=== PATIENT | male | born 1930 | race Caucasian/White ===

== ENCOUNTER 2018-01-06 08:36 | Inpatient (IN) | payer MEDICARE ==
[~2018-01-06] VITALS: Ht 185.4 cm; Wt 82.5 kg
[2018-01-06 09:14] LABS: BASOPHILS % (AUTO) 0.3 % (0.0-5.0); EOSINOPHILS % (AUTO) 2.5 % (0.0-8.0); HEMATOCRIT 42.1 % (42-54); LYMPHOCYTES % (AUTO) 4.9 % (21.0-51.0); MEAN CORPUSCULAR HEMOGLOBIN 31.5 pg (27.0-33.0); MEAN CORPUSCULAR HGB CONC 33.5 g/dL (32.0-36.0); MEAN CORPUSCULAR VOLUME 93.9 fL (79-99); MONOCYTES % (AUTO) 4.9 % (3.0-13.0); NEUTROPHILS % (AUTO) 87.4 % (40.0-77.0); PLATELET COUNT (AUTO) 142 K/uL (130-400); RED BLOOD CELL COUNT(AUTO) 4.49 MIL/uL (4.50-6.20); RED CELL DISTRIBUTION WIDTH 14.5 % (11.0-15.5); WHITE BLOOD COUNT (AUTO) 6.8 K/uL (4.8-10.8)
[2018-01-06 09:29] LABS: CREATININE 1.9 mg/dL (0.5-1.5); POTASSIUM 4.3 mmol/L (3.5-5.1)
[2018-01-06 09:35] LABS: ALBUMIN 3.5 g/dL (3.5-5.0); BILIRUBIN,TOTAL 0.5 mg/dL (0.2-1.0); TOTAL PROTEIN, SERUM 6.6 g/dL (6.0-8.3)
[2018-01-06] MEDS ORDERED: SODIUM CHLORIDE 0.9% 1000ML 1,000 ML IV ONE ×2 (10:09→12:36)
[2018-01-06] MEDS ORDERED: CEFTRIAXONE SODIUM 1 GM ONE (10:09)
[2018-01-06] MEDS ORDERED: SODIUM CHLORIDE 0.9% 100 ML IV ONE (10:10)
[2018-01-06] MEDS ORDERED: AZITHROMYCIN 250 MG TABLET PO ONE (10:10)
[2018-01-06 10:20] LABS: APPEARANCE,URINE Clear (CLEAR); BILIRUBIN,URINE Negative (NEGATIVE); COLOR,URINE Yellow (YELLOW); GLUCOSE, URINE (UA) Negative (NEGATIVE); KETONES,URINE Negative (NEGATIVE); LEUKOCYTE ESTERASE ,URINE Negative (NEGATIVE); NITRATE,URINE Negative (NEGATIVE); OCCULT BLOOD,URINE Negative (NEGATIVE); PROTEIN,URINE Trace (NEGATIVE); UROBILINOGEN,URINE 0.2 mg/dL (0.2-1.0)
[2018-01-06 10:31] LABS: BACTERIA,URINE None Seen /HPF (None Seen); MUCUS,URINE Rare LPF (None Seen); RBC,URINE None Seen /HPF (0-1); SQUAMOUS EPITHELIAL CELL,UR Rare /HPF (0-2); WBC,URINE 0-1 /HPF (0-1)
[2018-01-06 16:20] VITALS: BP 148/76
[2018-01-06] MEDS ORDERED: ACETAMINOPHEN 325 MG TAB PO PRN (17:00)
[2018-01-06] MEDS: SODIUM CHLORIDE 0.9% 1000ML 1,000 ML IV SCH (17:00)
[2018-01-06 19:10] VITALS: BP 151/86
[2018-01-06] MEDS ORDERED: GABA-529 PO (20:16)
[2018-01-06] MEDS ORDERED: BISA10SU61 RC (20:16)
[2018-01-06] MEDS ORDERED: MULT-1192 PO (20:16)
[2018-01-06] MEDS ORDERED: TAMS0.4C32 PO (20:16)
[2018-01-06] MEDS ORDERED: ENAL5TAB PO (20:16)
[2018-01-06] MEDS ORDERED: CALC1TAB3 PO (20:16)
[2018-01-06] MEDS ORDERED: ACET325C PO (20:16)
[2018-01-06] MEDS ORDERED: FLUT1DIS4 IH (20:16)
[2018-01-06] MEDS ORDERED: ALBUHFA IH (20:16)
[2018-01-06] MEDS ORDERED: MIRT15TA7 PO (20:16)
[2018-01-06] MEDS ORDERED: MOM30 PO (20:16)
[2018-01-06] MEDS ORDERED: PANT20TA12 PO (20:16)
[2018-01-06] MEDS ORDERED: MEMA1TAB2 PO (20:16)
[2018-01-06] MEDS ORDERED: NA P133E22 RC (20:16)
[2018-01-07] MEDS ORDERED: ONDANSETRON HCL MDV 20ML 2 MG/ML VIAL IVP PRN
[2018-01-07 00:04] VITALS: BP 138/78
[2018-01-07] MEDS: IPRATROPIUM/ALBUTEROL SULFATE 3 ML SOLUTION IH SCH ×5 (01:14→23:02)
[2018-01-07 04:30] VITALS: BP 122/76
[2018-01-07] MEDS: SODIUM CHLORIDE 0.9% 1000ML 1,000 ML IV SCH ×2 (05:58→20:33)
[2018-01-07 06:25] LABS: CREATININE 1.6 mg/dL (0.5-1.5); POTASSIUM 4.1 mmol/L (3.5-5.1)
[2018-01-07 07:00] VITALS: BP 122/66
[2018-01-07] MEDS: CEFTRIAXONE SODIUM 1 GM IVP SCH (09:02)
[2018-01-07] MEDS: AZITHROMYCIN 500MG+NS 250ML 250 ML IV SCH (09:07)
[2018-01-07] MEDS: ENOXAPARIN SODIUM 30 MG/0.3 ML SQ SCH (09:18)
[2018-01-07 11:00] VITALS: BP 104/61
[2018-01-07 15:00] VITALS: BP 133/72
[2018-01-07 20:47] VITALS: BP 132/65
[2018-01-08 00:33] VITALS: BP 135/64
[2018-01-08 04:30] VITALS: BP 178/95
[2018-01-08 05:36] LABS: BASOPHILS % (AUTO) 0.5 % (0.0-5.0); EOSINOPHILS % (AUTO) 7.4 % (0.0-8.0); HEMATOCRIT 34.7 % (42-54); MEAN CORPUSCULAR HEMOGLOBIN 32.2 pg (27.0-33.0); MEAN CORPUSCULAR VOLUME 94.8 fL (79-99); MONOCYTES % (AUTO) 5.5 % (3.0-13.0); NEUTROPHILS % (AUTO) 75.6 % (40.0-77.0); PLATELET COUNT (AUTO) 129 K/uL (130-400); RED BLOOD CELL COUNT(AUTO) 3.66 MIL/uL (4.50-6.20); RED CELL DISTRIBUTION WIDTH 14.5 % (11.0-15.5); WHITE BLOOD COUNT (AUTO) 5.5 K/uL (4.8-10.8)
[2018-01-08 05:45] LABS: CREATININE 1.5 mg/dL (0.5-1.5)
[2018-01-08] MEDS: IPRATROPIUM/ALBUTEROL SULFATE 3 ML SOLUTION IH SCH ×4 (06:09→23:59)
[2018-01-08 08:00] VITALS: BP 148/93
[2018-01-08] MEDS: SODIUM CHLORIDE 0.9% 1000ML 1,000 ML IV SCH (09:45)
[2018-01-08] MEDS: CEFTRIAXONE SODIUM 1 GM IVP SCH (09:46)
[2018-01-08] MEDS: ENOXAPARIN SODIUM 30 MG/0.3 ML SQ SCH (09:48)
[2018-01-08] MEDS: AZITHROMYCIN 500MG+NS 250ML 250 ML IV SCH (10:00)
[2018-01-08 12:00] VITALS: BP 169/96
[2018-01-08 16:00] VITALS: BP 161/116
[2018-01-08 20:35] VITALS: BP 170/82
[2018-01-08] MEDS ORDERED: LORAZEPAM 2 MG/ML 1 ML VIAL IVP PRN (22:00)
[2018-01-08] MEDS ORDERED: ALPRAZOLAM 0.25 MG TABLET PO PRN (22:00)
[2018-01-08] MEDS: HYDRALAZINE HCL 20 MG/ML VIAL IV PRN (22:56)
[2018-01-09 00:15] VITALS: BP 155/85
[2018-01-09] MEDS: HYDRALAZINE HCL 20 MG/ML VIAL IV PRN (05:46)
[2018-01-09 05:47] LABS: BASOPHILS % (AUTO) 0.4 % (0.0-5.0); EOSINOPHILS % (AUTO) 5.4 % (0.0-8.0); HEMATOCRIT 39.1 % (42-54); LYMPHOCYTES % (AUTO) 10.9 % (21.0-51.0); MEAN CORPUSCULAR HEMOGLOBIN 32.2 pg (27.0-33.0); MEAN CORPUSCULAR HGB CONC 34.1 g/dL (32.0-36.0); MEAN CORPUSCULAR VOLUME 94.5 fL (79-99); NEUTROPHILS % (AUTO) 75.3 % (40.0-77.0); PLATELET COUNT (AUTO) 144 K/uL (130-400); RED BLOOD CELL COUNT(AUTO) 4.14 MIL/uL (4.50-6.20); RED CELL DISTRIBUTION WIDTH 14.6 % (11.0-15.5); WHITE BLOOD COUNT (AUTO) 5.1 K/uL (4.8-10.8)
[2018-01-09 05:57] LABS: CREATININE 1.4 mg/dL (0.5-1.5); POTASSIUM 4.3 mmol/L (3.5-5.1)
[2018-01-09] MEDS: IPRATROPIUM/ALBUTEROL SULFATE 3 ML SOLUTION IH SCH ×3 (06:25→17:39)
[2018-01-09] MEDS ORDERED: NA PHOS DI BA RC PRN (08:45)
[2018-01-09] MEDS ORDERED: BISACODYL 10 MG SUPP.RECT RC SCH (08:45)
[2018-01-09] MEDS ORDERED: NA PHOS M B RC PRN (08:45)
[2018-01-09] MEDS ORDERED: MEMANTINE HCL PO SCH (09:00)
[2018-01-09] MEDS: CEFTRIAXONE SODIUM 1 GM IVP SCH (09:07)
[2018-01-09] MEDS: AZITHROMYCIN 500MG+NS 250ML 250 ML IV SCH (09:07)
[2018-01-09 09:12] VITALS: BP 145/71
[2018-01-09 11:59] VITALS: BP 137/87
[2018-01-09] MEDS: TAMSULOSIN HCL 0.4 MG CAP.ER.24H PO SCH (13:17)
[2018-01-09] MEDS: GABAPENTIN 100 MG CAPSULE PO SCH ×2 (13:17→20:19)
[2018-01-09] MEDS: ENALAPRIL MALEATE 5 MG TAB PO SCH (13:18)
[2018-01-09] MEDS: ENOXAPARIN SODIUM 30 MG/0.3 ML SQ SCH (13:20)
[2018-01-09 17:33] VITALS: BP 116/75
[2018-01-09] MEDS: BUDESONIDE 0.5 MG/2 ML INH IH SCH (17:39)
[2018-01-09] MEDS: MIRTAZAPINE 15 MG TABLET PO SCH (20:18)
[2018-01-10] VITALS: BP 114/55
[2018-01-10] MEDS: IPRATROPIUM/ALBUTEROL SULFATE 3 ML SOLUTION IH SCH ×4 (00:13→18:48)
[2018-01-10] MEDS: BUDESONIDE 0.5 MG/2 ML INH IH SCH ×2 (07:14→18:48)
[2018-01-10 08:00] VITALS: BP 148/86
[2018-01-10] MEDS: TAMSULOSIN HCL 0.4 MG CAP.ER.24H PO SCH (08:47)
[2018-01-10] MEDS: AZITHROMYCIN 500MG+NS 250ML 250 ML IV SCH (08:47)
[2018-01-10] MEDS: PANTOPRAZOLE SODIUM 40 MG TABLET.DR PO SCH (08:47)
[2018-01-10] MEDS: CALCIUM 600 + VITAMIN D 400 TABLET PO SCH (08:47)
[2018-01-10] MEDS: ENALAPRIL MALEATE 5 MG TAB PO SCH (08:47)
[2018-01-10] MEDS: MULTIVITAMIN TABLET PO SCH (08:48)
[2018-01-10] MEDS: CEFTRIAXONE SODIUM 1 GM IVP SCH (08:48)
[2018-01-10] MEDS: GABAPENTIN 100 MG CAPSULE PO SCH ×3 (08:48→20:46)
[2018-01-10] MEDS: ENOXAPARIN SODIUM 30 MG/0.3 ML SQ SCH (08:49)
[2018-01-10] MEDS: FLUTICASONE/SALMETEROL 100MCG-50MCG/DISKUS IH SCH ×2 (09:00→20:43)
[2018-01-10 11:00] VITALS: BP 122/72
[2018-01-10 16:00] VITALS: BP 120/70
[2018-01-10 19:00] VITALS: BP 148/87
[2018-01-10] MEDS: MIRTAZAPINE 15 MG TABLET PO SCH (20:45)
[2018-01-11] VITALS: BP 131/74
[2018-01-11] MEDS: IPRATROPIUM/ALBUTEROL SULFATE 3 ML SOLUTION IH SCH ×4 (00:14→18:04)
[2018-01-11 04:00] VITALS: BP 138/75
[2018-01-11 05:26] LABS: BASOPHILS % (AUTO) 0.8 % (0.0-5.0); EOSINOPHILS % (AUTO) 12.9 % (0.0-8.0); HEMATOCRIT 34.6 % (42-54); MEAN CORPUSCULAR HEMOGLOBIN 32.7 pg (27.0-33.0); MEAN CORPUSCULAR HGB CONC 34.4 g/dL (32.0-36.0); MEAN CORPUSCULAR VOLUME 95.1 fL (79-99); MONOCYTES % (AUTO) 8.4 % (3.0-13.0); NEUTROPHILS % (AUTO) 54.9 % (40.0-77.0); NUCLEATED RED BLOOD CELLS 0.1 % (0.0-0.19); PLATELET COUNT (AUTO) 145 K/uL (130-400); RED BLOOD CELL COUNT(AUTO) 3.64 MIL/uL (4.50-6.20); RED CELL DISTRIBUTION WIDTH 14.8 % (11.0-15.5); WHITE BLOOD COUNT (AUTO) 4.1 K/uL (4.8-10.8)
[2018-01-11 05:30] LABS: CREATININE 1.4 mg/dL (0.5-1.5); POTASSIUM 4.2 mmol/L (3.5-5.1)
[2018-01-11] MEDS: BUDESONIDE 0.5 MG/2 ML INH IH SCH ×2 (06:18→18:04)
[2018-01-11 08:00] VITALS: BP 141/99
[2018-01-11] MEDS: ENOXAPARIN SODIUM 30 MG/0.3 ML SQ SCH (08:57)
[2018-01-11] MEDS: CALCIUM 600 + VITAMIN D 400 TABLET PO SCH (08:57)
[2018-01-11] MEDS: GABAPENTIN 100 MG CAPSULE PO SCH ×3 (08:57→20:52)
[2018-01-11] MEDS: ENALAPRIL MALEATE 5 MG TAB PO SCH (08:58)
[2018-01-11] MEDS: AZITHROMYCIN 500MG+NS 250ML 250 ML IV SCH (08:58)
[2018-01-11] MEDS: TAMSULOSIN HCL 0.4 MG CAP.ER.24H PO SCH (08:58)
[2018-01-11] MEDS: MULTIVITAMIN TABLET PO SCH (08:58)
[2018-01-11] MEDS: PANTOPRAZOLE SODIUM 40 MG TABLET.DR PO SCH (08:58)
[2018-01-11] MEDS: CEFTRIAXONE SODIUM 1 GM IVP SCH (08:58)
[2018-01-11] MEDS: FLUTICASONE/SALMETEROL 100MCG-50MCG/DISKUS IH SCH ×2 (09:00→21:00)
[2018-01-11 11:00] VITALS: BP 118/69
[2018-01-11 16:00] VITALS: BP 156/91
[2018-01-11 19:00] VITALS: BP 157/86
[2018-01-11] MEDS: MIRTAZAPINE 15 MG TABLET PO SCH (20:52)
[2018-01-12] VITALS (7 sets, daily range): BP systolic 118–147; BP diastolic 48–78
[2018-01-12] MEDS: IPRATROPIUM/ALBUTEROL SULFATE 3 ML SOLUTION IH SCH ×4 (01:09→18:27)
[2018-01-12] MEDS: BUDESONIDE 0.5 MG/2 ML INH IH SCH ×2 (06:11→18:43)
[2018-01-12] MEDS: AZITHROMYCIN 500MG+NS 250ML 250 ML IV SCH (09:12)
[2018-01-12] MEDS: CEFTRIAXONE SODIUM 1 GM IVP SCH (09:12)
[2018-01-12] MEDS: ENALAPRIL MALEATE 5 MG TAB PO SCH (09:13)
[2018-01-12] MEDS: TAMSULOSIN HCL 0.4 MG CAP.ER.24H PO SCH (09:13)
[2018-01-12] MEDS: PANTOPRAZOLE SODIUM 40 MG TABLET.DR PO SCH (09:13)
[2018-01-12] MEDS: MULTIVITAMIN TABLET PO SCH (09:13)
[2018-01-12] MEDS: CALCIUM 600 + VITAMIN D 400 TABLET PO SCH (09:13)
[2018-01-12] MEDS: GABAPENTIN 100 MG CAPSULE PO SCH ×3 (09:13→20:58)
[2018-01-12] MEDS: ENOXAPARIN SODIUM 30 MG/0.3 ML SQ SCH (09:16)
[2018-01-12] MEDS: MAGNESIUM HYDROXIDE 30 ML/UDCUP PO PRN (09:29)
[2018-01-12] MEDS: MIRTAZAPINE 15 MG TABLET PO SCH (20:58)
[2018-01-12] MEDS: FLUTICASONE/SALMETEROL 100MCG-50MCG/DISKUS IH SCH (21:00)
[2018-01-13] MEDS: IPRATROPIUM/ALBUTEROL SULFATE 3 ML SOLUTION IH SCH ×2 (00:42→06:18)
[2018-01-13] MEDS: MAGNESIUM HYDROXIDE 30 ML/UDCUP PO PRN (01:53)
[2018-01-13 04:32] VITALS: BP 119/61
[2018-01-13] MEDS: BUDESONIDE 0.5 MG/2 ML INH IH SCH (06:35)
[2018-01-13 08:00] VITALS: BP 150/78
[2018-01-13] MEDS: CEFTRIAXONE SODIUM 1 GM IVP SCH (08:36)
[2018-01-13] MEDS: AZITHROMYCIN 500MG+NS 250ML 250 ML IV SCH (08:36)
[2018-01-13] MEDS: CALCIUM 600 + VITAMIN D 400 TABLET PO SCH (08:38)
[2018-01-13] MEDS: ENALAPRIL MALEATE 5 MG TAB PO SCH (08:38)
[2018-01-13] MEDS: PANTOPRAZOLE SODIUM 40 MG TABLET.DR PO SCH (08:38)
[2018-01-13] MEDS: MULTIVITAMIN TABLET PO SCH (08:38)
[2018-01-13] MEDS: GABAPENTIN 100 MG CAPSULE PO SCH ×2 (08:38→14:58)
[2018-01-13] MEDS: TAMSULOSIN HCL 0.4 MG CAP.ER.24H PO SCH (08:38)
[2018-01-13] MEDS: FLUTICASONE/SALMETEROL 100MCG-50MCG/DISKUS IH SCH (08:41)
[2018-01-13] MEDS: ENOXAPARIN SODIUM 30 MG/0.3 ML SQ SCH (08:41)
[2018-01-13 12:00] VITALS: BP 132/74
== END 2018-01-13 15:10 | disposition home or self-care (01) | DRG 193 ==
LOC: EDH 08:36 → EDHIP 12:05 → 3AH 16:19
PROVIDERS: ADMIT Family Medicine; ATTEND Family Medicine
DX: J18.9 Pneumonia, unspecified organism (principal); G93.41 Metabolic encephalopathy; N17.9 Acute kidney failure, unspecified; F03.90 Unspecified dementia, unspecified severity, without behavioral disturbance, psychotic disturbance, mood disturbance, and anxiety; I10 Essential (primary) hypertension
CPT/HCPCS: 36415; 70450; 71045; 80048; 80053; 81001; 82948; 85025; 87633; 93005; 94640; 94664; 97039; A4218; J0360; J0456; J0696; J1650; J2060; J7030

== ENCOUNTER 2019-01-03 01:08 | Inpatient (IN) | payer MEDICARE ==
[~2019-01-03] VITALS: Ht 188 cm; Wt 82.1 kg
[~2019-01-03 01:08] MED LIST: ACET325C3 PO; ALBUHFA IH; BISA10SU61 RC; CALC1TAB3 PO; ENAL5TAB PO; FLUT1DIS4 IH; GABA-529 PO; MEMA1TAB2 PO; MIRT-72 PO; MOM30 PO; MULT-1192 PO; NA P133E22 RC; PANT20TA12 PO; TAMS0.4C32 PO
[2019-01-03 01:49] LABS: APPEARANCE,URINE Clear (CLEAR); BILIRUBIN,URINE Negative (NEGATIVE); COLOR,URINE Yellow (YELLOW); GLUCOSE, URINE (UA) Negative (NEGATIVE); KETONES,URINE Negative (NEGATIVE); LEUKOCYTE ESTERASE ,URINE Trace (NEGATIVE); NITRATE,URINE Negative (NEGATIVE); OCCULT BLOOD,URINE Negative (NEGATIVE); PROTEIN,URINE Negative (NEGATIVE); UROBILINOGEN,URINE 0.2 mg/dL (0.2-1.0)
[2019-01-03 01:58] LABS: BASOPHILS % (AUTO) 0.2 % (0.0-5.0); EOSINOPHILS % (AUTO) 3.4 % (0.0-8.0); HEMATOCRIT 41.7 % (42-54); MEAN CORPUSCULAR HGB CONC 34.5 g/dL (32.0-36.0); MEAN CORPUSCULAR VOLUME 95.5 fL (79-99); MONOCYTES % (AUTO) 6.3 % (3.0-13.0); NEUTROPHILS % (AUTO) 85.1 % (40.0-77.0); NUCLEATED RED BLOOD CELLS 0.1 % (0.0-0.19); PLATELET COUNT (AUTO) 126 K/uL (130-400); RED BLOOD CELL COUNT(AUTO) 4.37 MIL/uL (4.50-6.20); RED CELL DISTRIBUTION WIDTH 14.2 % (11.0-15.5); WHITE BLOOD COUNT (AUTO) 7.7 K/uL (4.8-10.8)
[2019-01-03 02:06] LABS: INR 0.98 (0.85-1.15); PARTIAL THROMBOPLASTIN TIME 26.5 SEC (26.3-35.5); PROTHROMBIN TIME 10.3 SEC (9.6-11.6)
[2019-01-03 02:24] LABS: BACTERIA,URINE None Seen /HPF (None Seen); RBC,URINE None Seen /HPF (0-1); SQUAMOUS EPITHELIAL CELL,UR Rare /HPF (0-2); WBC,URINE 0-1 /HPF (0-1)
[2019-01-03 02:42] LABS: ALBUMIN 3.2 g/dL (3.5-5.0); BILIRUBIN,TOTAL 0.8 mg/dL (0.2-1.0); CREATININE 1.5 mg/dL (0.5-1.5); POTASSIUM 4.6 mmol/L (3.5-5.1); TOTAL PROTEIN, SERUM 6.1 g/dL (6.0-8.3)
[2019-01-03] MEDS ORDERED: SODIUM CHLORIDE 0.9% 1000ML 1,000 ML IV ONE ×2 (03:21→07:40)
[2019-01-03] MEDS ORDERED: GUAIFENESIN-CODEINE 5 ML SYRUP PO PRN (08:00)
[2019-01-03] MEDS ORDERED: GUAIFENESIN-CODEINE 5 ML SYRUP ONE (08:17)
[2019-01-03 09:04] VITALS: BP 125/69
[2019-01-03] MEDS ORDERED: METHYLPREDNISOLONE SOD SUCC 125MG/2ML VIAL IVP SCH (09:45)
[2019-01-03] MEDS ORDERED: MAGNESIUM HYDROXIDE 30 ML/UDCUP PO PRN (10:00)
[2019-01-03] MEDS ORDERED: ACETAMINOPHEN 325 MG TAB PO PRN (10:00)
[2019-01-03] MEDS ORDERED: HYDROCODONE/ACETAMINOPHEN 5/325 MG TAB PO PRN (10:00)
[2019-01-03] MEDS ORDERED: [UNRECOGNIZED DRUG - CODE] MC (10:22)
[2019-01-03] MEDS ORDERED: FURO20TA4 PO (10:22)
[2019-01-03] MEDS: IPRATROPIUM/ALBUTEROL SULFATE 3 ML SOLUTION IH PRN ×2 (10:44→18:26)
[2019-01-03] MEDS: DIPHENHYDRAMINE HCL 25 MG CAPSULE PO PRN ×2 (10:47→18:27)
[2019-01-03 11:36] VITALS: BP 131/77
[2019-01-03 16:00] VITALS: BP 157/87
[2019-01-03] MEDS: GABAPENTIN 100 MG CAPSULE PO SCH ×2 (16:54→21:13)
[2019-01-03 20:00] VITALS: BP 148/73
[2019-01-03] MEDS ORDERED: MEMANTINE HCL PO SCH (21:00)
[2019-01-03] MEDS: MIRTAZAPINE 15 MG TABLET PO SCH (21:13)
[2019-01-03] MEDS: FAMOTIDINE 20MG TAB 20 MG TAB PO SCH (21:13)
[2019-01-04] VITALS (7 sets, daily range): BP systolic 126–171; BP diastolic 72–101
[2019-01-04 06:06] LABS: HEMATOCRIT 38.7 % (42-54); MEAN CORPUSCULAR HEMOGLOBIN 33.2 pg (27.0-33.0); MEAN CORPUSCULAR HGB CONC 34.1 g/dL (32.0-36.0); MEAN CORPUSCULAR VOLUME 97.4 fL (79-99); NUCLEATED RED BLOOD CELLS 0.1 % (0.0-0.19); PLATELET COUNT (AUTO) 125 K/uL (130-400); RED BLOOD CELL COUNT(AUTO) 3.97 MIL/uL (4.50-6.20); RED CELL DISTRIBUTION WIDTH 14.7 % (11.0-15.5); WHITE BLOOD COUNT (AUTO) 6.6 K/uL (4.8-10.8)
[2019-01-04 06:22] LABS: CREATININE 1.4 mg/dL (0.5-1.5); POTASSIUM 4.1 mmol/L (3.5-5.1)
[2019-01-04] MEDS: SODIUM CHLORIDE 0.9% 1000ML 1,000 ML IV SCH ×4 (06:51→20:53)
[2019-01-04] MEDS: DIPHENHYDRAMINE HCL 25 MG CAPSULE PO PRN ×2 (08:03→23:13)
[2019-01-04] MEDS: GABAPENTIN 100 MG CAPSULE PO SCH (08:03)
[2019-01-04] MEDS: TAMSULOSIN HCL 0.4 MG CAP.ER.24H PO SCH (08:04)
[2019-01-04] MEDS: CALCIUM 600 + VITAMIN D 400 TABLET PO SCH (08:04)
[2019-01-04] MEDS: MULTIVITAMIN TABLET PO SCH (08:04)
[2019-01-04] MEDS: FAMOTIDINE 20MG TAB 20 MG TAB PO SCH ×2 (08:05→20:43)
[2019-01-04] MEDS: ENALAPRIL MALEATE 5 MG TAB PO SCH (08:05)
[2019-01-04] MEDS: PREDNISONE 20 MG TABLET PO SCH (08:05)
[2019-01-04] MEDS: FUROSEMIDE 20 MG TABLET PO SCH (08:05)
[2019-01-04] MEDS: ENOXAPARIN SODIUM 30 MG/0.3 ML SQ SCH (08:06)
[2019-01-04] MEDS: [UNRECOGNIZED DRUG - OTHER] MISC SCH ×2 (09:00→20:52)
[2019-01-04] MEDS: IPRATROPIUM/ALBUTEROL SULFATE 3 ML SOLUTION IH PRN ×2 (10:12→18:20)
[2019-01-04] MEDS ORDERED: AEC81 PO (13:51)
[2019-01-04] MEDS: CETIRIZINE HCL 5 MG TABLET PO SCH (20:43)
[2019-01-04] MEDS: MIRTAZAPINE 15 MG TABLET PO SCH (20:43)
[2019-01-05 04:09] VITALS: BP 141/90
[2019-01-05 05:54] LABS: BASOPHILS % (AUTO) 0.3 % (0.0-5.0); EOSINOPHILS % (AUTO) 5.4 % (0.0-8.0); HEMATOCRIT 38.9 % (42-54); LYMPHOCYTES % (AUTO) 5.6 % (21.0-51.0); MEAN CORPUSCULAR HEMOGLOBIN 32.6 pg (27.0-33.0); MEAN CORPUSCULAR HGB CONC 33.9 g/dL (32.0-36.0); MEAN CORPUSCULAR VOLUME 96.1 fL (79-99); NEUTROPHILS % (AUTO) 83.7 % (40.0-77.0); PLATELET COUNT (AUTO) 156 K/uL (130-400); RED BLOOD CELL COUNT(AUTO) 4.05 MIL/uL (4.50-6.20); RED CELL DISTRIBUTION WIDTH 14.7 % (11.0-15.5); WHITE BLOOD COUNT (AUTO) 10.3 K/uL (4.8-10.8)
[2019-01-05 06:03] LABS: CREATININE 1.4 mg/dL (0.5-1.5)
[2019-01-05 07:00] VITALS: BP 151/88
[2019-01-05] MEDS: IPRATROPIUM/ALBUTEROL SULFATE 3 ML SOLUTION IH PRN ×2 (08:48→18:48)
[2019-01-05] MEDS: [UNRECOGNIZED DRUG - OTHER] MISC SCH ×3 (09:00→20:03)
[2019-01-05] MEDS: CALCIUM 600 + VITAMIN D 400 TABLET PO SCH (10:14)
[2019-01-05] MEDS: CETIRIZINE HCL 5 MG TABLET PO SCH (10:14)
[2019-01-05] MEDS: PREDNISONE 20 MG TABLET PO SCH (10:14)
[2019-01-05] MEDS: FUROSEMIDE 20 MG TABLET PO SCH (10:14)
[2019-01-05] MEDS: ENALAPRIL MALEATE 5 MG TAB PO SCH (10:14)
[2019-01-05] MEDS: MULTIVITAMIN TABLET PO SCH (10:14)
[2019-01-05] MEDS: FAMOTIDINE 20MG TAB 20 MG TAB PO SCH ×2 (10:14→20:03)
[2019-01-05] MEDS: TAMSULOSIN HCL 0.4 MG CAP.ER.24H PO SCH (10:14)
[2019-01-05] MEDS: ENOXAPARIN SODIUM 30 MG/0.3 ML SQ SCH (10:15)
[2019-01-05] MEDS: LORAZEPAM 2 MG/ML 1 ML VIAL IVP PRN ×2 (10:15→23:26)
[2019-01-05 10:53] VITALS: BP 131/76
[2019-01-05 16:27] VITALS: BP 126/72
[2019-01-05 19:20] VITALS: BP 146/89
[2019-01-05] MEDS: MIRTAZAPINE 15 MG TABLET PO SCH (20:03)
[2019-01-06] VITALS (8 sets, daily range): BP systolic 125–174; BP diastolic 91–105
[2019-01-06] MEDS ORDERED: HYDRALAZINE HCL 20 MG/ML VIAL ONE (04:11)
[2019-01-06] MEDS ORDERED: HYDRALAZINE HCL 20 MG/ML VIAL IM PRN (04:15)
[2019-01-06] MEDS ORDERED: HYDRALAZINE HCL 20 MG/ML VIAL IV PRN (04:15)
[2019-01-06 04:59] LABS: BASOPHILS % (AUTO) 0.3 % (0.0-5.0); EOSINOPHILS % (AUTO) 5.2 % (0.0-8.0); HEMATOCRIT 41.6 % (42-54); LYMPHOCYTES % (AUTO) 12.6 % (21.0-51.0); MEAN CORPUSCULAR HEMOGLOBIN 32.8 pg (27.0-33.0); MEAN CORPUSCULAR HGB CONC 33.9 g/dL (32.0-36.0); MEAN CORPUSCULAR VOLUME 96.8 fL (79-99); MONOCYTES % (AUTO) 5.6 % (3.0-13.0); NEUTROPHILS % (AUTO) 76.3 % (40.0-77.0); NUCLEATED RED BLOOD CELLS 0.1 % (0.0-0.19); PLATELET COUNT (AUTO) 155 K/uL (130-400); RED BLOOD CELL COUNT(AUTO) 4.29 MIL/uL (4.50-6.20); RED CELL DISTRIBUTION WIDTH 14.9 % (11.0-15.5); WHITE BLOOD COUNT (AUTO) 7.6 K/uL (4.8-10.8)
[2019-01-06 05:16] LABS: CREATININE 1.6 mg/dL (0.5-1.5); POTASSIUM 4.9 mmol/L (3.5-5.1)
[2019-01-06] MEDS: LORAZEPAM 2 MG/ML 1 ML VIAL IVP PRN (05:24)
[2019-01-06] MEDS: IPRATROPIUM/ALBUTEROL SULFATE 3 ML SOLUTION IH PRN ×2 (07:23→18:56)
[2019-01-06] MEDS: [UNRECOGNIZED DRUG - OTHER] MISC SCH ×3 (09:00→21:00)
[2019-01-06] MEDS: TAMSULOSIN HCL 0.4 MG CAP.ER.24H PO SCH ×2 (10:26→14:59)
[2019-01-06] MEDS: CETIRIZINE HCL 5 MG TABLET PO SCH (10:26)
[2019-01-06] MEDS: CALCIUM 600 + VITAMIN D 400 TABLET PO SCH (10:27)
[2019-01-06] MEDS: FUROSEMIDE 20 MG TABLET PO SCH (10:27)
[2019-01-06] MEDS: FAMOTIDINE 20MG TAB 20 MG TAB PO SCH ×2 (10:27→19:53)
[2019-01-06] MEDS: MULTIVITAMIN TABLET PO SCH (10:27)
[2019-01-06] MEDS: ENALAPRIL MALEATE 5 MG TAB PO SCH (10:27)
[2019-01-06] MEDS: PREDNISONE 20 MG TABLET PO SCH (10:27)
[2019-01-06] MEDS: ENOXAPARIN SODIUM 30 MG/0.3 ML SQ SCH (10:27)
[2019-01-06] MEDS ORDERED: RISPERIDONE 1 MG TABLET PO SCH ×2 (14:30→21:00)
[2019-01-06] MEDS ORDERED: OLANZAPINE ODT 5 MG TAB SL PRN (14:30)
[2019-01-06] MEDS: MIRTAZAPINE 15 MG TABLET PO SCH (19:52)
[2019-01-07 04:00] VITALS: BP 153/109
[2019-01-07 06:17] LABS: BASOPHILS % (AUTO) 0.3 % (0.0-5.0); EOSINOPHILS % (AUTO) 6.1 % (0.0-8.0); HEMATOCRIT 42.7 % (42-54); LYMPHOCYTES % (AUTO) 10.8 % (21.0-51.0); MEAN CORPUSCULAR HEMOGLOBIN 31.6 pg (27.0-33.0); MEAN CORPUSCULAR VOLUME 95.6 fL (79-99); MONOCYTES % (AUTO) 7.6 % (3.0-13.0); NEUTROPHILS % (AUTO) 75.2 % (40.0-77.0); PLATELET COUNT (AUTO) 169 K/uL (130-400); RED BLOOD CELL COUNT(AUTO) 4.46 MIL/uL (4.50-6.20); RED CELL DISTRIBUTION WIDTH 14.8 % (11.0-15.5); WHITE BLOOD COUNT (AUTO) 5.8 K/uL (4.8-10.8)
[2019-01-07 06:33] LABS: CREATININE 1.9 mg/dL (0.5-1.5); POTASSIUM 4.1 mmol/L (3.5-5.1)
[2019-01-07] MEDS: IPRATROPIUM/ALBUTEROL SULFATE 3 ML SOLUTION IH PRN ×2 (07:16→18:22)
[2019-01-07 08:00] VITALS: BP 162/98
[2019-01-07] MEDS: [UNRECOGNIZED DRUG - OTHER] MISC SCH ×2 (09:00→14:00)
[2019-01-07] MEDS: MULTIVITAMIN TABLET PO SCH (10:21)
[2019-01-07] MEDS: PREDNISONE 20 MG TABLET PO SCH (10:21)
[2019-01-07] MEDS: FAMOTIDINE 20MG TAB 20 MG TAB PO SCH (10:21)
[2019-01-07] MEDS: CALCIUM 600 + VITAMIN D 400 TABLET PO SCH (10:21)
[2019-01-07] MEDS: ENALAPRIL MALEATE 5 MG TAB PO SCH (10:21)
[2019-01-07] MEDS: FUROSEMIDE 20 MG TABLET PO SCH (10:22)
[2019-01-07] MEDS: CETIRIZINE HCL 5 MG TABLET PO SCH (10:22)
[2019-01-07] MEDS: ENOXAPARIN SODIUM 30 MG/0.3 ML SQ SCH (10:23)
[2019-01-07 12:00] VITALS: BP 139/87
== END 2019-01-07 18:40 | DRG 607 ==
LOC: EDH 01:08 → OBSVTOIN 06:54 → EDHIP 06:54 → 3AH 08:45 → 3BH 01-04 19:38
PROVIDERS: ADMIT Hospitalist; ATTEND Hospitalist
DX: L50.9 Urticaria, unspecified (principal); F03.91 Unspecified dementia, unspecified severity, with behavioral disturbance; R53.1 Weakness; T78.40XA Allergy, unspecified, initial encounter; E86.0 Dehydration; F03.90 Unspecified dementia, unspecified severity, without behavioral disturbance, psychotic disturbance, mood disturbance, and anxiety; I10 Essential (primary) hypertension; K59.09 Other constipation; F39 Unspecified mood [affective] disorder; J44.9 Chronic obstructive pulmonary disease, unspecified; N40.0 Benign prostatic hyperplasia without lower urinary tract symptoms; Y92.89 Other specified places as the place of occurrence of the external cause; Z82.49 Family history of ischemic heart disease and other diseases of the circulatory system; Z83.3 Family history of diabetes mellitus; Z80.9 Family history of malignant neoplasm, unspecified; Z84.89 Family history of other specified conditions; Z87.891 Personal history of nicotine dependence
CPT/HCPCS: 36415; 70450; 71045; 80048; 80053; 81001; 82140; 82550; 83605; 84484; 85025; 85027; 85610; 85730; 93005; 94640; 94664; G0378; J0360; J1650; J2060; J2930; J7030; Q0163

== ENCOUNTER 2019-01-07 19:48 | Emergency (ER) | payer MEDICARE ==
[~2019-01-07 19:48] MED LIST changes: -ACET325C3 PO; +AEC81 PO; -ALBUHFA IH; -BISA10SU61 RC; +FURO20TA4 PO; -GABA-529 PO; -MEMA1TAB2 PO; -MIRT-72 PO; -MOM30 PO; -NA P133E22 RC; -TAMS0.4C32 PO; +[UNRECOGNIZED DRUG - CODE] MC
[2019-01-07 20:53] LABS: BASOPHILS % (AUTO) 0.4 % (0.0-5.0); EOSINOPHILS % (AUTO) 0.5 % (0.0-8.0); HEMATOCRIT 41.7 % (42-54); LYMPHOCYTES % (AUTO) 7.5 % (21.0-51.0); MEAN CORPUSCULAR HEMOGLOBIN 31.8 pg (27.0-33.0); MEAN CORPUSCULAR HGB CONC 33.4 g/dL (32.0-36.0); MEAN CORPUSCULAR VOLUME 95.3 fL (79-99); MONOCYTES % (AUTO) 4.7 % (3.0-13.0); NEUTROPHILS % (AUTO) 86.9 % (40.0-77.0); PLATELET COUNT (AUTO) 181 K/uL (130-400); RED BLOOD CELL COUNT(AUTO) 4.37 MIL/uL (4.50-6.20); WHITE BLOOD COUNT (AUTO) 5.8 K/uL (4.8-10.8)
[2019-01-07 21:09] LABS: INR 0.96 (0.85-1.15); PARTIAL THROMBOPLASTIN TIME 22.6 SEC (26.3-35.5); PROTHROMBIN TIME 10.1 SEC (9.6-11.6)
[2019-01-07 22:00] LABS: ALBUMIN 3.3 g/dL (3.5-5.0); BILIRUBIN,DIRECT 0.1 mg/dL (0.0-0.3); BILIRUBIN,TOTAL 0.8 mg/dL (0.2-1.0); CREATININE 2.2 mg/dL (0.5-1.5); POTASSIUM 4.5 mmol/L (3.5-5.1); TOTAL PROTEIN, SERUM 6.8 g/dL (6.0-8.3)
[2019-01-07 22:24] LABS: APPEARANCE,URINE Clear (CLEAR); BILIRUBIN,URINE Negative (NEGATIVE); COLOR,URINE Yellow (YELLOW); GLUCOSE, URINE (UA) Negative (NEGATIVE); KETONES,URINE Negative (NEGATIVE); LEUKOCYTE ESTERASE ,URINE Negative (NEGATIVE); NITRATE,URINE Negative (NEGATIVE); OCCULT BLOOD,URINE Negative (NEGATIVE); PROTEIN,URINE Negative (NEGATIVE); UROBILINOGEN,URINE 0.2 mg/dL (0.2-1.0)
[2019-01-07] MEDS ORDERED: SODIUM CHLORIDE 0.9% 500ML 500 ML IV ONE (22:24)
== END 2019-01-08 01:34 | disposition home or self-care (01) ==
LOC: EDH 19:48
DX: K56.41 Fecal impaction (principal); R33.9 Retention of urine, unspecified; N28.9 Disorder of kidney and ureter, unspecified; I10 Essential (primary) hypertension; Z88.1 Allergy status to other antibiotic agents
CPT/HCPCS: 36415; 51702; 74176; 80048; 80076; 81003; 82550; 83690; 84484; 85025; 85610; 85730; 93005; 99285; J7040

== ENCOUNTER 2019-01-23 15:43 | Inpatient (IN) | payer MEDICARE ==
[~2019-01-23] VITALS: Ht 185.4 cm; Wt 67.6 kg
[2019-01-23 16:46] LABS: APPEARANCE,URINE CLOUDY (CLEAR); BILIRUBIN,URINE NEGATIVE (NEGATIVE); COLOR,URINE BROWN (YELLOW); GLUCOSE, URINE (UA) NEGATIVE (NEGATIVE); KETONES,URINE NEGATIVE (NEGATIVE); LEUKOCYTE ESTERASE ,URINE SMALL (NEGATIVE); NITRATE,URINE NEGATIVE (NEGATIVE); OCCULT BLOOD,URINE LARGE (NEGATIVE); PH,URINE 5.5 (5.0-8.0); PROTEIN,URINE >=300 mg/dL (NEGATIVE); UROBILINOGEN,URINE 0.2 mg/dL (0.2-1.0)
[2019-01-23 16:52] LABS: BACTERIA,URINE Few /HPF (None Seen); RBC,URINE Full Field /HPF (0-1); SQUAMOUS EPITHELIAL CELL,UR Rare /HPF (0-2)
[2019-01-23 17:01] LABS: BASOPHILS % (AUTO) 0.5 % (0.0-5.0); EOSINOPHILS % (AUTO) 3.6 % (0.0-8.0); HEMATOCRIT 39.5 % (42-54); LYMPHOCYTES % (AUTO) 16.3 % (21.0-51.0); MEAN CORPUSCULAR HEMOGLOBIN 32.4 pg (27.0-33.0); MEAN CORPUSCULAR HGB CONC 33.9 g/dL (32.0-36.0); MEAN CORPUSCULAR VOLUME 95.6 fL (79-99); MONOCYTES % (AUTO) 8.2 % (3.0-13.0); NEUTROPHILS % (AUTO) 71.4 % (40.0-77.0); PLATELET COUNT (AUTO) 165 K/uL (130-400); RED BLOOD CELL COUNT(AUTO) 4.13 MIL/uL (4.50-6.20); RED CELL DISTRIBUTION WIDTH 14.4 % (11.0-15.5)
[2019-01-23 17:10] LABS: INR 0.93 (0.85-1.15); PARTIAL THROMBOPLASTIN TIME 25.3 SEC (26.3-35.5); PROTHROMBIN TIME 9.8 SEC (9.6-11.6)
[2019-01-23 17:24] LABS: POTASSIUM 4.1 mmol/L (3.5-5.1)
[2019-01-23 17:28] LABS: ALBUMIN 3.2 g/dL (3.5-5.0); BILIRUBIN,TOTAL 0.6 mg/dL (0.2-1.0); TOTAL PROTEIN, SERUM 6.4 g/dL (6.0-8.3)
[2019-01-23] MEDS ORDERED: SODIUM CHLORIDE 0.9% 1000ML 1,000 ML IV ONE ×2 (17:46→20:38)
[2019-01-23] MEDS ORDERED: DOXYCYCLINE 100MG+NS 250ML 250 ML IV ONE (17:47)
[2019-01-23] MEDS: SODIUM CHLORIDE 0.9% 1000ML 1,000 ML IV SCH (19:14)
[2019-01-23] MEDS ORDERED: IPRATROPIUM/ALBUTEROL SULFATE 3 ML SOLUTION IH PRN (19:15)
[2019-01-23] MEDS ORDERED: ONDANSETRON HCL 4 MG/2 ML VIAL IV PRN (19:15)
[2019-01-23] MEDS ORDERED: ACETAMINOPHEN 325 MG TAB PO PRN ×2 (19:15)
[2019-01-23] MEDS ORDERED: NITROGLYCERIN 0.4 MG SL TAB SL PRN (19:15)
[2019-01-23 22:30] VITALS: BP 130/74
--- NOTE | 2019-01-23 22:45 | NUR ---
Pt admitted with Valle Catheter from [facility]. Old bag change noted with a leak upon transport. Addendum: 01/24/19 at 0855 by CAMILLA ATWOOD RN RN Amended: Links added.
--- NOTE | 2019-01-23 22:45 | NUR ---
Pupils unable to check as pt does not want to cooperate at this time. Addendum: 01/24/19 at 0855 by CAMILLA ATWOOD RN RN Amended: Links added.
--- NOTE | 2019-01-23 22:45 | NUR ---
Admission Assessment Received pt from ED per stretcher with son Kamron around, with NS infusing at 100cc/hr, Valle catheter reported from [facility] current output noted dark red, per pt's son stated FC was irrigated in ED earlier, prior to coming in reported output was not bloody. FC bag noted leaking, change aseptically. Per Mr. Lundy pt noted to not eating well & if this happens pt is being very sick. I updated pt's son will all test done in ED, DX: UTI, encephalopathy, that pt has been started with Doxycycline IV in ED. Per Mr. Lundy nothing has been change from the last month admission except this time pt with FC. I verified code status, he said pt is complete DNR, in house DNR paper signed, aware pt has been aspirating when eating, stated if pt eat or not it's OK as pt with Alzheimer & that sometimes he eats on his own, sometimes needs assistance. Also stated sometimes becomes combative but this usually happens if pt is sick. Per Mr. Lundy, plan to send the pt back to [facility] for half-way care but for now for rehabilitation as [facility] is still processing the half-way coverage. Re: medications/ vaccinations to refer to [facility]. Pt is bedbound.
[2019-01-24 04:00] VITALS: BP 136/80
[2019-01-24 04:54] LABS: BASOPHILS % (AUTO) 1.8 % (0.0-5.0); EOSINOPHILS % (AUTO) 6.7 % (0.0-8.0); HEMATOCRIT 35.2 % (42-54); LYMPHOCYTES % (AUTO) 19.6 % (21.0-51.0); MEAN CORPUSCULAR HGB CONC 34.6 g/dL (32.0-36.0); MEAN CORPUSCULAR VOLUME 95.3 fL (79-99); MONOCYTES % (AUTO) 7.7 % (3.0-13.0); NEUTROPHILS % (AUTO) 64.2 % (40.0-77.0); PLATELET COUNT (AUTO) 144 K/uL (130-400); RED BLOOD CELL COUNT(AUTO) 3.69 MIL/uL (4.50-6.20); RED CELL DISTRIBUTION WIDTH 14.7 % (11.0-15.5); WHITE BLOOD COUNT (AUTO) 4.2 K/uL (4.8-10.8)
[2019-01-24 05:05] LABS: ALBUMIN 2.5 g/dL (3.5-5.0); BILIRUBIN,TOTAL 0.6 mg/dL (0.2-1.0); CREATININE 1.6 mg/dL (0.5-1.5); POTASSIUM 3.9 mmol/L (3.5-5.1); TOTAL PROTEIN, SERUM 5.2 g/dL (6.0-8.3)
[2019-01-24] MEDS: SODIUM CHLORIDE 0.9% 1000ML 1,000 ML IV SCH (05:14)
[2019-01-24] MEDS ORDERED: RISP1TAB89 PO (07:34)
[2019-01-24] MEDS ORDERED: TEMA7.5C19 PO (07:34)
[2019-01-24] MEDS ORDERED: CETI5TAB12 PO (08:04)
[2019-01-24] MEDS ORDERED: ACET-2247 PO (08:04)
[2019-01-24] MEDS ORDERED: MELO-106 PO (08:04)
[2019-01-24] MEDS ORDERED: GUAI5SYR PO (08:04)
[2019-01-24] MEDS ORDERED: LACT10SO PO (08:04)
[2019-01-24] MEDS ORDERED: FAMO20TA8 PO (08:04)
[2019-01-24] MEDS ORDERED: ASCO-477 PO (08:04)
[2019-01-24] MEDS ORDERED: MELA3TAB PO (08:04)
[2019-01-24] MEDS ORDERED: vit b12 PO (08:04)
[2019-01-24] MEDS ORDERED: POLY17PO4 PO (08:04)
[2019-01-24] MEDS ORDERED: FOLI1TAB85 PO (08:04)
[2019-01-24] MEDS ORDERED: ASPI-555 PO (08:04)
[2019-01-24] MEDS ORDERED: LEVO500T2 PO (08:04)
[2019-01-24] MEDS ORDERED: TAMS-1 PO (08:04)
[2019-01-24] MEDS: FAMOTIDINE 20MG TAB 20 MG TAB PO SCH (10:01)
[2019-01-24] MEDS: DOXYCYCLINE 100MG+NS 250ML 250 ML IV SCH ×2 (10:03→21:12)
[2019-01-24 11:00] VITALS: BP 152/78
[2019-01-24 16:00] VITALS: BP 143/81
[2019-01-24 20:00] VITALS: BP 140/75
[2019-01-25] VITALS: BP 135/78
[2019-01-25] MEDS: SODIUM CHLORIDE 0.9% 1000ML 1,000 ML IV SCH ×3 (00:40→21:37)
[2019-01-25 04:00] VITALS: BP 126/67
[2019-01-25] MEDS ORDERED: LORAZEPAM 2 MG/ML 1 ML VIAL IVP STA (04:45)
[2019-01-25] MEDS ORDERED: LORAZEPAM 2 MG/ML 1 ML VIAL ONE (04:48)
[2019-01-25 06:14] LABS: BASOPHILS % (AUTO) 1.3 % (0.0-5.0); EOSINOPHILS % (AUTO) 8.1 % (0.0-8.0); LYMPHOCYTES % (AUTO) 17.4 % (21.0-51.0); MEAN CORPUSCULAR HGB CONC 34.3 g/dL (32.0-36.0); MEAN CORPUSCULAR VOLUME 96.1 fL (79-99); MONOCYTES % (AUTO) 7.1 % (3.0-13.0); NEUTROPHILS % (AUTO) 66.1 % (40.0-77.0); NUCLEATED RED BLOOD CELLS 0.1 % (0.0-0.19); PLATELET COUNT (AUTO) 160 K/uL (130-400); RED BLOOD CELL COUNT(AUTO) 3.75 MIL/uL (4.50-6.20); RED CELL DISTRIBUTION WIDTH 14.3 % (11.0-15.5); WHITE BLOOD COUNT (AUTO) 4.5 K/uL (4.8-10.8)
[2019-01-25 06:29] LABS: CREATININE 1.4 mg/dL (0.5-1.5); POTASSIUM 4.1 mmol/L (3.5-5.1)
[2019-01-25] MEDS: DOXYCYCLINE 100MG+NS 250ML 250 ML IV SCH ×2 (07:16→17:33)
[2019-01-25] MEDS: FAMOTIDINE 20MG TAB 20 MG TAB PO SCH (09:00)
[2019-01-25] MEDS: LORAZEPAM 2 MG/ML 1 ML VIAL ONE ×2 (12:31→14:06)
[2019-01-25] MEDS ORDERED: LORAZEPAM 2 MG/ML 1 ML VIAL IM SCH (12:53)
--- NOTE | 2019-01-25 15:00 | NUR ---
informed hospitalist dr Rodriguez and christoph york on rounds regarding patient combative , pulling out iv hitting , yelling ,aggressive to staff members. per christoph york will place orders for prn anxiety meds. let her know also facility meds updated ready for review which to con t. per debbie will look at them and review.
[2019-01-25 15:02] VITALS: BP 175/87
[2019-01-25] MEDS ORDERED: LORAZEPAM 0.5 MG TABLET PO SCH (16:15)
[2019-01-25] MEDS ORDERED: HYDROCODONE/ACETAMINOPHEN 5/325 MG TAB PO PRN (16:15)
[2019-01-25 20:00] VITALS: BP 166/98
--- NOTE | 2019-01-25 21:00 | NUR ---
COMBATIVE Pt confused,restless,combative.Sumanth mittens applied to prevent from pulling out iv.
[2019-01-25] MEDS: RISPERIDONE 1 MG TABLET PO SCH (21:37)
--- NOTE | 2019-01-25 23:00 | NUR ---
REASSESS Pt assessed both hands for circulation,good Cms to both hands.
[2019-01-26] VITALS: BP 146/72
--- NOTE | 2019-01-26 03:17 | NUR ---
CALM Pt resting quietly in bed,home meds had beed resumned per Volleyball Referee.
--- NOTE | 2019-01-26 03:19 | NUR ---
SITTER Pt calm,sitted at bedside.
[2019-01-26] MEDS: LORAZEPAM 0.5 MG TABLET PO PRN (03:31)
--- NOTE | 2019-01-26 03:39 | NUR ---
COMBATIVE Pt restless,combative,reoriented per staff.Pt swings his arms and hit staff.Medicated with Ativan po.
[2019-01-26 05:18] VITALS: BP 158/112
[2019-01-26] MEDS: DOXYCYCLINE 100MG+NS 250ML 250 ML IV SCH ×2 (05:44→18:46)
[2019-01-26] MEDS: SODIUM CHLORIDE 0.9% 1000ML 1,000 ML IV SCH ×2 (05:44→21:03)
[2019-01-26 06:39] LABS: HEMATOCRIT 37.8 % (42-54); MEAN CORPUSCULAR HEMOGLOBIN 31.9 pg (27.0-33.0); MEAN CORPUSCULAR HGB CONC 33.5 g/dL (32.0-36.0); MEAN CORPUSCULAR VOLUME 95.1 fL (79-99); PLATELET COUNT (AUTO) 166 K/uL (130-400); RED BLOOD CELL COUNT(AUTO) 3.98 MIL/uL (4.50-6.20); RED CELL DISTRIBUTION WIDTH 14.4 % (11.0-15.5); WHITE BLOOD COUNT (AUTO) 3.4 K/uL (4.8-10.8)
[2019-01-26 06:53] LABS: CREATININE 1.1 mg/dL (0.5-1.5); POTASSIUM 3.7 mmol/L (3.5-5.1)
[2019-01-26 07:21] VITALS: BP 132/77
[2019-01-26] MEDS: [UNRECOGNIZED DRUG - OTHER] PO SCH (09:00)
[2019-01-26] MEDS: [UNRECOGNIZED DRUG - OTHER] PO SCH ×3 (09:00→19:59)
[2019-01-26] MEDS: POLYETHYLENE GLYCOL 3350 17 GM POWD.PACK PO SCH (09:00)
[2019-01-26] MEDS: Melatonin 3 MG PO SCH (09:00)
[2019-01-26] MEDS: FOLIC ACID/VITAMIN B COMP W-C 1 MG CAP/TAB PO SCH (10:56)
[2019-01-26] MEDS: ASPIRIN 81MG TAB.CHEW PO SCH (10:56)
[2019-01-26] MEDS: CYANOCOBALAMIN (VITAMIN B-12) 100 MCG TABLET PO SCH (10:56)
[2019-01-26] MEDS: TAMSULOSIN HCL 0.4 MG CAP.ER.24H PO SCH (10:56)
[2019-01-26] MEDS: ASCORBIC ACID 500 MG TAB PO SCH ×2 (10:56→19:58)
[2019-01-26] MEDS: FAMOTIDINE 20MG TAB 20 MG TAB PO SCH (10:56)
[2019-01-26] MEDS: MULTIVITAMIN TABLET PO SCH (10:56)
[2019-01-26] MEDS: FUROSEMIDE 20 MG TABLET PO SCH ×2 (10:57→19:58)
[2019-01-26] MEDS: CETIRIZINE HCL 5 MG TABLET PO SCH (11:03)
[2019-01-26] MEDS: ENALAPRIL MALEATE 5 MG TAB PO SCH ×2 (11:03→19:58)
--- NOTE | 2019-01-26 11:11 | NUR ---
Rounding on patient. Patient with AMS AOx1. Patient has 1:1 sitter. Mittens on patient to prevent injury. During medication adm, meds crushed and tried giving meds to patient with applesauce, patient then moderately jabbed nurse in the abdomen. Pt refusing to take medications.
[2019-01-26 12:00] VITALS: BP 155/94
[2019-01-26 16:00] VITALS: BP 154/92
[2019-01-26 19:00] VITALS: BP 170/87
[2019-01-26] MEDS: RISPERIDONE 1 MG TABLET PO SCH (19:58)
--- NOTE | 2019-01-26 19:58 | NUR ---
MEDS Pt took meds,meagan well.
--- NOTE | 2019-01-26 22:00 | NUR ---
STEPHANIES Mittens off from 1899 to 2199.
[2019-01-27] MEDS: LORAZEPAM 0.5 MG TABLET PO PRN (00:07)
--- NOTE | 2019-01-27 00:07 | NUR ---
ATIVAN Pt awake,restless,agitated and trying to get out of bed.Reoriented per staff.Ativan given.
--- NOTE | 2019-01-27 01:07 | NUR ---
MED EFFECT Pt appears drowsy.Less agitated this time.
[2019-01-27] MEDS: SODIUM CHLORIDE 0.9% 1000ML 1,000 ML IV SCH ×3 (01:42→20:26)
[2019-01-27 04:08] VITALS: BP 175/95
[2019-01-27 04:57] LABS: HEMATOCRIT 38.4 % (42-54); MEAN CORPUSCULAR HEMOGLOBIN 32.4 pg (27.0-33.0); MEAN CORPUSCULAR HGB CONC 33.9 g/dL (32.0-36.0); MEAN CORPUSCULAR VOLUME 95.4 fL (79-99); NUCLEATED RED BLOOD CELLS 0.1 % (0.0-0.19); PLATELET COUNT (AUTO) 149 K/uL (130-400); RED BLOOD CELL COUNT(AUTO) 4.02 MIL/uL (4.50-6.20); RED CELL DISTRIBUTION WIDTH 14.3 % (11.0-15.5); WHITE BLOOD COUNT (AUTO) 4.1 K/uL (4.8-10.8)
[2019-01-27] MEDS: DOXYCYCLINE 100MG+NS 250ML 250 ML IV SCH ×2 (05:02→17:56)
[2019-01-27 05:08] LABS: CREATININE 1.1 mg/dL (0.5-1.5); POTASSIUM 4.3 mmol/L (3.5-5.1)
--- NOTE | 2019-01-27 06:55 | NUR ---
AWAKE Pt woke up,started to get restless,reoriented per staff.Sitter at bedside.
--- NOTE | 2019-01-27 07:45 | NUR ---
Patient sleeping. Pt continues with mittens. Assessed wrist. No redness or bluish discoloration noted.
[2019-01-27 08:00] VITALS: BP 152/80
[2019-01-27] MEDS: [UNRECOGNIZED DRUG - OTHER] PO SCH ×3 (09:00→20:32)
[2019-01-27] MEDS: POLYETHYLENE GLYCOL 3350 17 GM POWD.PACK PO SCH (09:00)
[2019-01-27] MEDS: [UNRECOGNIZED DRUG - OTHER] PO SCH (09:00)
[2019-01-27] MEDS: Melatonin 3 MG PO SCH (09:00)
[2019-01-27] MEDS: FOLIC ACID/VITAMIN B COMP W-C 1 MG CAP/TAB PO SCH (09:58)
[2019-01-27] MEDS: TAMSULOSIN HCL 0.4 MG CAP.ER.24H PO SCH (09:58)
[2019-01-27] MEDS: FAMOTIDINE 20MG TAB 20 MG TAB PO SCH (09:58)
[2019-01-27] MEDS: FUROSEMIDE 20 MG TABLET PO SCH (09:58)
[2019-01-27] MEDS: MULTIVITAMIN TABLET PO SCH (09:58)
[2019-01-27] MEDS: ENALAPRIL MALEATE 5 MG TAB PO SCH (09:58)
[2019-01-27] MEDS: ASPIRIN 81MG TAB.CHEW PO SCH (09:58)
[2019-01-27] MEDS: ASCORBIC ACID 500 MG TAB PO SCH ×2 (09:58→20:27)
[2019-01-27] MEDS: CYANOCOBALAMIN (VITAMIN B-12) 100 MCG TABLET PO SCH (09:58)
[2019-01-27 11:00] VITALS: BP 157/91
[2019-01-27] MEDS: CETIRIZINE HCL 5 MG TABLET PO SCH (12:00)
--- NOTE | 2019-01-27 12:00 | NUR ---
Patient eating lunch in no distress assisted by ESAU Torres 100% meal eaten. Patient calm and content.
--- NOTE | 2019-01-27 14:03 | NUR ---
DC PLAN VISITED WITH PATIENT. PATIENT WAS AT [facility] FOR 16 DAYS FOR REHAB THEY WERE IN THE PROCESS OF TRANSITIONING TO [employer] [facility]. AZAR SIGNED FOR [facility]. FAMILY WANTS TO TRY [facility] NOW. THEY HAVE ALREADY VISITED FACILITY. SPOKE TO REP PATIENT STILL WITH YOLETTE. PENDING DR. VIGIL. ONCE CLEARED AND ABLE TO GO THEN WILL FINISH PROCESS FOR FACILITY. Addendum: 01/27/19 at 1406 by DANIELA VILLA RN CM Amended: Links added.
[2019-01-27] MEDS ORDERED: LORAZEPAM 2 MG/ML 1 ML VIAL ONE (15:28)
--- NOTE | 2019-01-27 15:30 | NUR ---
Patient combative swinging at nurses while trying to assess robert catheter. Patient trying to climb out of bed, pulling on FC and Robert catheter draining bright red blood. PALOMO Millan notified of combative patient and urine color change. Possible trauma from patient pulling on f/c. Augusta Donaldson, RN, and AREA OPERATIONS MANAGER at bedside with patient to prevent further harm.
--- NOTE | 2019-01-27 15:33 | NUR ---
Ativan given at 1533. Not 1800
[2019-01-27 16:00] VITALS: BP 125/74
[2019-01-27] MEDS ORDERED: LORAZEPAM 2 MG/ML 1 ML VIAL IVP ONE (17:00)
--- NOTE | 2019-01-27 18:00 | NUR ---
Patient continues being combative holding arms up and punching saying the Name "Eugenio". ESAU Torres at pt bedside to prevent patient from harming self.
--- NOTE | 2019-01-27 19:20 | NUR ---
Dr. Ross reynoso Addendum: 01/27/19 at 2015 by FIDE BEACH RN RN Physician noted in chart
[2019-01-27] MEDS ORDERED: OLANZAPINE ODT 5 MG TAB SL STA (19:24)
[2019-01-27 20:00] VITALS: BP 166/85
[2019-01-27] MEDS: RISPERIDONE 1 MG TABLET PO SCH (20:26)
[2019-01-27] MEDS: MIRTAZAPINE 15 MG TABLET PO SCH (21:40)
[2019-01-28] MEDS ORDERED: OLANZAPINE ODT 5 MG TAB SL SCH
[2019-01-28 00:06] VITALS: BP 106/56
[2019-01-28 04:17] VITALS: BP 140/90
[2019-01-28] MEDS: OLANZAPINE ODT 5 MG TAB SL PRN ×2 (04:43→15:49)
--- NOTE | 2019-01-28 05:00 | NUR ---
AGITATION Pt appears sleepy but still agitated and swinging arms and punching in the air.Zyprexa given.Left arm skin tear opsite dressing with bloody drainage,reinforced with kerlix dressing for now.Staff unable to bathe pt now,combative and agitated.Robert cath secured with robert cath figueroa.Delicia care rendered.
[2019-01-28] MEDS: DOXYCYCLINE 100MG+NS 250ML 250 ML IV SCH ×2 (05:32→18:22)
[2019-01-28 06:46] LABS: HEMATOCRIT 36.9 % (42-54); MEAN CORPUSCULAR HEMOGLOBIN 31.5 pg (27.0-33.0); MEAN CORPUSCULAR HGB CONC 33.3 g/dL (32.0-36.0); MEAN CORPUSCULAR VOLUME 94.5 fL (79-99); PLATELET COUNT (AUTO) 175 K/uL (130-400); RED BLOOD CELL COUNT(AUTO) 3.91 MIL/uL (4.50-6.20); RED CELL DISTRIBUTION WIDTH 14.3 % (11.0-15.5); WHITE BLOOD COUNT (AUTO) 5.8 K/uL (4.8-10.8)
[2019-01-28 07:00] VITALS: BP_SYST 150; BP_SYST 164; BP_DIAS 60; BP_DIAS 86
[2019-01-28 07:01] LABS: CREATININE 1.2 mg/dL (0.5-1.5); POTASSIUM 4.2 mmol/L (3.5-5.1)
[2019-01-28] MEDS: [UNRECOGNIZED DRUG - OTHER] PO SCH ×3 (09:00→21:00)
[2019-01-28] MEDS: CETIRIZINE HCL 5 MG TABLET PO SCH (09:00)
[2019-01-28] MEDS: [UNRECOGNIZED DRUG - OTHER] PO SCH (09:00)
[2019-01-28] MEDS: ASCORBIC ACID 500 MG TAB PO SCH ×2 (09:00→21:00)
[2019-01-28] MEDS: Melatonin 3 MG PO SCH (09:00)
[2019-01-28 11:00] VITALS: BP 156/81
[2019-01-28] MEDS: POLYETHYLENE GLYCOL 3350 17 GM POWD.PACK PO SCH (14:37)
[2019-01-28] MEDS: TAMSULOSIN HCL 0.4 MG CAP.ER.24H PO SCH (14:38)
[2019-01-28] MEDS: FUROSEMIDE 20 MG TABLET PO SCH (14:38)
[2019-01-28] MEDS: FAMOTIDINE 20MG TAB 20 MG TAB PO SCH (14:38)
[2019-01-28] MEDS: ASPIRIN 81MG TAB.CHEW PO SCH (14:38)
[2019-01-28] MEDS: MULTIVITAMIN TABLET PO SCH (14:38)
[2019-01-28] MEDS: CYANOCOBALAMIN (VITAMIN B-12) 100 MCG TABLET PO SCH (14:38)
[2019-01-28] MEDS: FOLIC ACID/VITAMIN B COMP W-C 1 MG CAP/TAB PO SCH (14:39)
[2019-01-28] MEDS: ENALAPRIL MALEATE 5 MG TAB PO SCH (14:57)
[2019-01-28] MEDS ORDERED: LORAZEPAM 2 MG/ML 1 ML VIAL IVP ONE (15:45)
--- NOTE | 2019-01-28 16:00 | NUR ---
PATIENTR COMBATIVE ,SPITTING , AGGRESSIVE AND YELLING . ASSISTED SITTER AT BEDSIDE TRYING TO CALM DOWN PATIENT WITHOUT SUCCESS ,PATIENT SPIT OUT MEDICATIONS . INFORMED PALOMO LI REGARDING SITUATION AND UNABLE TO HAVE PATIEN TTAKE HIS MEDICATIONS DUE TO HIS BEHAVIOR AND PATIENT SPITTING OUT ALL MEDICATIONS . PER GUILLERMO PLACED A ONE TIME ORDER FOR ANXIETY . WILL CONT TO MONITOR
--- NOTE | 2019-01-28 17:21 | NUR ---
Nutrition Intervention: Nutrition screen based on LOS x 5 days. Pt. admitted with Dx of Dehydration, encephalopathy, robert catheter. Pt. with Hx of Dementia. As per MD notes, pt. off and on confusion/aggressive behavior. Pt. on Heart Healthy diet with 0% p.o. intake, per EMR. As per practical nursing faculty, pt. usually asleep and when he awakens he becomes aggressive; medication is administered for his aggression but it usually makes pt. fall asleep. Labs reviewed(Alb 2.5). LBM: 01/24/19. SR-19, elastic. BMI: 22.8, normal for age. Recommendations: 1) Rec. Ensure QD with B'fast meal. 2) May consider alternate means of nutrition, such as Tube Feedings, if pt. continues with poor p.o. intake. 3) Continue to monitor pt's nutritional status. 4) Consult RD as nutrition concerns arise. Addendum: 01/28/19 at [address] Amended: Links added.
[2019-01-28] MEDS ORDERED: OLANZAPINE 10MG/ML 1ML VIAL IM PRN (19:00)
[2019-01-28 19:12] VITALS: BP 169/116
--- NOTE | 2019-01-28 20:25 | NUR ---
Nursing Notes Pt refuses to open mouth to take the applesauce at this time will attempt to give the pt the crushed medication with applesauce later.
[2019-01-28] MEDS: RISPERIDONE 1 MG TABLET PO SCH (21:00)
[2019-01-28] MEDS: MIRTAZAPINE 15 MG TABLET PO SCH (21:00)
[2019-01-29 00:18] VITALS: BP 148/75
[2019-01-29 04:28] VITALS: BP 137/91
[2019-01-29] MEDS ORDERED: DOXYCYCLINE 100MG+NS 250ML 250 ML IV ONE (04:42)
[2019-01-29] MEDS: DOXYCYCLINE 100MG+NS 250ML 250 ML IV SCH ×2 (05:08→17:43)
[2019-01-29 07:00] VITALS: BP 139/74
[2019-01-29 07:04] LABS: MEAN CORPUSCULAR HEMOGLOBIN 32.4 pg (27.0-33.0); MEAN CORPUSCULAR VOLUME 95.4 fL (79-99); NUCLEATED RED BLOOD CELLS 0.1 % (0.0-0.19); PLATELET COUNT (AUTO) 150 K/uL (130-400); RED BLOOD CELL COUNT(AUTO) 4.19 MIL/uL (4.50-6.20); RED CELL DISTRIBUTION WIDTH 14.3 % (11.0-15.5); WHITE BLOOD COUNT (AUTO) 4.7 K/uL (4.8-10.8)
[2019-01-29 07:16] LABS: CREATININE 1.1 mg/dL (0.5-1.5); POTASSIUM 3.8 mmol/L (3.5-5.1)
[2019-01-29] MEDS: CETIRIZINE HCL 5 MG TABLET PO SCH (09:00)
[2019-01-29] MEDS: [UNRECOGNIZED DRUG - OTHER] PO SCH ×3 (09:00→20:21)
[2019-01-29] MEDS: Melatonin 3 MG PO SCH (09:00)
[2019-01-29] MEDS: ASPIRIN 81MG TAB.CHEW PO SCH (10:32)
[2019-01-29] MEDS: ASCORBIC ACID 500 MG TAB PO SCH ×2 (10:32→20:21)
[2019-01-29] MEDS: CYANOCOBALAMIN (VITAMIN B-12) 100 MCG TABLET PO SCH (10:32)
[2019-01-29] MEDS: FUROSEMIDE 20 MG TABLET PO SCH (10:32)
[2019-01-29] MEDS: FAMOTIDINE 20MG TAB 20 MG TAB PO SCH (10:32)
[2019-01-29] MEDS: MULTIVITAMIN TABLET PO SCH (10:32)
[2019-01-29] MEDS: FOLIC ACID/VITAMIN B COMP W-C 1 MG CAP/TAB PO SCH (10:34)
[2019-01-29] MEDS: [UNRECOGNIZED DRUG - OTHER] PO SCH (10:35)
[2019-01-29] MEDS: ENALAPRIL MALEATE 5 MG TAB PO SCH (10:35)
[2019-01-29] MEDS: TAMSULOSIN HCL 0.4 MG CAP.ER.24H PO SCH (10:35)
[2019-01-29] MEDS: POLYETHYLENE GLYCOL 3350 17 GM POWD.PACK PO SCH (10:36)
[2019-01-29 11:00] VITALS: BP 164/99
[2019-01-29 16:00] VITALS: BP 136/96
[2019-01-29] MEDS: MIRTAZAPINE 15 MG TABLET PO SCH (20:21)
[2019-01-29] MEDS: RISPERIDONE 1 MG TABLET PO SCH (20:21)
[2019-01-29 23:15] VITALS: BP 106/71
[2019-01-30 04:23] VITALS: BP 121/65
[2019-01-30 04:46] LABS: BASOPHILS % (AUTO) 0.6 % (0.0-5.0); EOSINOPHILS % (AUTO) 6.2 % (0.0-8.0); HEMATOCRIT 38.1 % (42-54); LYMPHOCYTES % (AUTO) 13.5 % (21.0-51.0); MEAN CORPUSCULAR HEMOGLOBIN 31.6 pg (27.0-33.0); MEAN CORPUSCULAR HGB CONC 33.4 g/dL (32.0-36.0); MEAN CORPUSCULAR VOLUME 94.5 fL (79-99); MONOCYTES % (AUTO) 6.2 % (3.0-13.0); NEUTROPHILS % (AUTO) 73.5 % (40.0-77.0); NUCLEATED RED BLOOD CELLS 0.1 % (0.0-0.19); PLATELET COUNT (AUTO) 173 K/uL (130-400); RED BLOOD CELL COUNT(AUTO) 4.03 MIL/uL (4.50-6.20); RED CELL DISTRIBUTION WIDTH 14.8 % (11.0-15.5); WHITE BLOOD COUNT (AUTO) 5.4 K/uL (4.8-10.8)
[2019-01-30 04:55] LABS: CREATININE 1.4 mg/dL (0.5-1.5); POTASSIUM 3.8 mmol/L (3.5-5.1)
[2019-01-30] MEDS: DOXYCYCLINE 100MG+NS 250ML 250 ML IV SCH ×2 (06:18→17:20)
[2019-01-30 08:00] VITALS: BP 138/96
[2019-01-30] MEDS: [UNRECOGNIZED DRUG - OTHER] PO SCH ×3 (09:00→20:16)
[2019-01-30] MEDS: [UNRECOGNIZED DRUG - OTHER] PO SCH (09:00)
[2019-01-30] MEDS: Melatonin 3 MG PO SCH (09:00)
[2019-01-30] MEDS: FAMOTIDINE 20MG TAB 20 MG TAB PO SCH (09:24)
[2019-01-30] MEDS: MULTIVITAMIN TABLET PO SCH (09:24)
[2019-01-30] MEDS: ASCORBIC ACID 500 MG TAB PO SCH ×2 (09:25→20:56)
[2019-01-30] MEDS: TAMSULOSIN HCL 0.4 MG CAP.ER.24H PO SCH (09:25)
[2019-01-30] MEDS: POLYETHYLENE GLYCOL 3350 17 GM POWD.PACK PO SCH (09:25)
[2019-01-30] MEDS: CYANOCOBALAMIN (VITAMIN B-12) 100 MCG TABLET PO SCH (09:25)
[2019-01-30] MEDS: FOLIC ACID/VITAMIN B COMP W-C 1 MG CAP/TAB PO SCH (09:25)
[2019-01-30] MEDS: ASPIRIN 81MG TAB.CHEW PO SCH (09:25)
[2019-01-30] MEDS: FUROSEMIDE 20 MG TABLET PO SCH (09:25)
[2019-01-30] MEDS: ENALAPRIL MALEATE 5 MG TAB PO SCH (10:57)
[2019-01-30] MEDS: CETIRIZINE HCL 5 MG TABLET PO SCH (10:57)
[2019-01-30 12:00] VITALS: BP 156/87
--- NOTE | 2019-01-30 14:53 | NUR ---
RD Follow up Pt remains with confusion and combative behavior. 2:[address] Pt eating 0% meals however consuming Ensure at this time, RD to advance to TID. Pt LBM 01/24/19. Pt monitored labs: BUN 25, GFR 51. RD to continue to monitor. Please notify RD as nutritional concerns arise. Thank you. Addendum: 01/30/19 at [address] Amended: Links added.
[2019-01-30 16:00] VITALS: BP 165/94
[2019-01-30 20:00] VITALS: BP 134/62
[2019-01-30] MEDS ORDERED: BISACODYL 10 MG SUPP.RECT RC PRN (20:00)
[2019-01-30] MEDS: MIRTAZAPINE 15 MG TABLET PO SCH (20:55)
[2019-01-30] MEDS: RISPERIDONE 1 MG TABLET PO SCH (20:56)
[2019-01-31] VITALS: BP 128/83
[2019-01-31 04:26] VITALS: BP 121/83
[2019-01-31 04:42] LABS: BASOPHILS % (AUTO) 0.7 % (0.0-5.0); HEMATOCRIT 37.7 % (42-54); LYMPHOCYTES % (AUTO) 18.1 % (21.0-51.0); MEAN CORPUSCULAR HEMOGLOBIN 32.2 pg (27.0-33.0); MEAN CORPUSCULAR HGB CONC 33.6 g/dL (32.0-36.0); NEUTROPHILS % (AUTO) 61.2 % (40.0-77.0); PLATELET COUNT (AUTO) 137 K/uL (130-400); RED BLOOD CELL COUNT(AUTO) 3.93 MIL/uL (4.50-6.20); RED CELL DISTRIBUTION WIDTH 14.6 % (11.0-15.5); WHITE BLOOD COUNT (AUTO) 4.4 K/uL (4.8-10.8)
[2019-01-31 04:56] LABS: CREATININE 1.6 mg/dL (0.5-1.5); POTASSIUM 3.5 mmol/L (3.5-5.1)
[2019-01-31] MEDS: DOXYCYCLINE 100MG+NS 250ML 250 ML IV SCH ×2 (05:53→17:57)
[2019-01-31 08:10] VITALS: BP 146/76
[2019-01-31] MEDS: [UNRECOGNIZED DRUG - OTHER] PO SCH ×3 (09:00→19:52)
[2019-01-31] MEDS: [UNRECOGNIZED DRUG - OTHER] PO SCH (09:00)
[2019-01-31] MEDS: Melatonin 3 MG PO SCH (09:00)
[2019-01-31] MEDS: FUROSEMIDE 20 MG TABLET PO SCH (09:43)
[2019-01-31] MEDS: FOLIC ACID/VITAMIN B COMP W-C 1 MG CAP/TAB PO SCH (09:44)
[2019-01-31] MEDS: ASPIRIN 81MG TAB.CHEW PO SCH (09:44)
[2019-01-31] MEDS: ENALAPRIL MALEATE 5 MG TAB PO SCH (09:44)
[2019-01-31] MEDS: FAMOTIDINE 20MG TAB 20 MG TAB PO SCH (09:44)
[2019-01-31] MEDS: TAMSULOSIN HCL 0.4 MG CAP.ER.24H PO SCH (09:44)
[2019-01-31] MEDS: POLYETHYLENE GLYCOL 3350 17 GM POWD.PACK PO SCH (09:44)
[2019-01-31] MEDS: CYANOCOBALAMIN (VITAMIN B-12) 100 MCG TABLET PO SCH (09:44)
[2019-01-31] MEDS: ASCORBIC ACID 500 MG TAB PO SCH ×2 (09:44→22:05)
[2019-01-31] MEDS: CETIRIZINE HCL 5 MG TABLET PO SCH (09:44)
[2019-01-31] MEDS: MULTIVITAMIN TABLET PO SCH (09:44)
[2019-01-31 11:06] VITALS: BP 129/76
[2019-01-31] MEDS ORDERED: POTASSIUM CHLORIDE 20MEQ/100ML 100 ML IV PRN (12:15)
[2019-01-31] MEDS ORDERED: POTASSIUM CHLORIDE 20 MEQ ERTAB PO PRN (12:15)
[2019-01-31] MEDS ORDERED: LIDOCAINE HCL-MPF 1% 2ML VIAL IVP PRN (12:15)
[2019-01-31] MEDS: POTASSIUM CHLORIDE 10% ELIXIR 20 MEQ/15 ML UDCUP PO PRN ×2 (12:50→15:19)
[2019-01-31] MEDS ORDERED: SODIUM CHLORIDE 0.9% 1000ML 1,000 ML IV ONE (13:30)
--- NOTE | 2019-01-31 13:30 | NUR ---
INFORMED DR. JOHNSON PATIENT WAS HAVING HEMATURIA. NEW ORDERS TO HOLD ASPIRIN AND START IV FLUID AND MONITOR . LABS FOR TOMORROW .
[2019-01-31 16:00] VITALS: BP 139/82
[2019-01-31 19:45] VITALS: BP 125/77
[2019-01-31] MEDS: MIRTAZAPINE 15 MG TABLET PO SCH (22:05)
[2019-01-31] MEDS: RISPERIDONE 1 MG TABLET PO SCH (22:05)
[2019-02-01] MEDS: DOXYCYCLINE 100MG+NS 250ML 250 ML IV SCH ×2 (05:56→17:25)
[2019-02-01 06:07] LABS: CREATININE 1.3 mg/dL (0.5-1.5); POTASSIUM 5.1 mmol/L (3.5-5.1)
[2019-02-01 07:00] LABS: HEMATOCRIT 37.8 % (42-54); MEAN CORPUSCULAR HEMOGLOBIN 31.3 pg (27.0-33.0); MEAN CORPUSCULAR HGB CONC 32.5 g/dL (32.0-36.0); MEAN CORPUSCULAR VOLUME 96.3 fL (79-99); PLATELET COUNT (AUTO) 147 K/uL (130-400); RED BLOOD CELL COUNT(AUTO) 3.93 MIL/uL (4.50-6.20); RED CELL DISTRIBUTION WIDTH 14.9 % (11.0-15.5); WHITE BLOOD COUNT (AUTO) 5.1 K/uL (4.8-10.8)
[2019-02-01 07:28] LABS: BASOPHILS % (MANUAL) 1 % (0-2); EOSINOPHILS % (MANUAL) 15 % (1-6); LYMPHOCYTES % (MANUAL) 17 % (22-44); MONOCYTES % (MANUAL) 3 % (2-9); SEGMENTED NEUTROPHILS % 64 % (40-70)
[2019-02-01 07:31] LABS: MAN.DIFF COMMENT-IMPRESSION MANUAL DIFFERENTIAL
[2019-02-01 07:32] LABS: PLATELET MORPHOLOGY COMMENT ADEQUATE
[2019-02-01 07:55] VITALS: BP 149/86
[2019-02-01] MEDS ORDERED: LACTULOSE 20 GM/30 ML UDCUP PO PRN (08:15)
[2019-02-01] MEDS: [UNRECOGNIZED DRUG - OTHER] PO SCH (09:00)
[2019-02-01] MEDS: Melatonin 3 MG PO SCH (09:00)
[2019-02-01] MEDS: [UNRECOGNIZED DRUG - OTHER] PO SCH ×3 (09:00→21:00)
[2019-02-01] MEDS: CYANOCOBALAMIN (VITAMIN B-12) 100 MCG TABLET PO SCH (09:09)
[2019-02-01] MEDS: FAMOTIDINE 20MG TAB 20 MG TAB PO SCH (09:09)
[2019-02-01] MEDS: CETIRIZINE HCL 5 MG TABLET PO SCH (09:09)
[2019-02-01] MEDS: POLYETHYLENE GLYCOL 3350 17 GM POWD.PACK PO SCH (09:09)
[2019-02-01] MEDS: FOLIC ACID/VITAMIN B COMP W-C 1 MG CAP/TAB PO SCH (09:09)
[2019-02-01] MEDS: TAMSULOSIN HCL 0.4 MG CAP.ER.24H PO SCH (09:09)
[2019-02-01] MEDS: FUROSEMIDE 20 MG TABLET PO SCH (09:10)
[2019-02-01] MEDS: MULTIVITAMIN TABLET PO SCH (09:10)
[2019-02-01] MEDS: ASCORBIC ACID 500 MG TAB PO SCH ×2 (09:10→21:01)
[2019-02-01] MEDS: ENALAPRIL MALEATE 5 MG TAB PO SCH (09:15)
[2019-02-01 11:03] VITALS: BP 166/88
--- NOTE | 2019-02-01 15:18 | NUR ---
PATIENT WITH HEMATURIA AND SMALL AMOUNT OF BLOOD CLOTS. FLUSHED ANDRADE WITH 100 CC ON NORMAL SALINE AND WILL MONITOR HEMATURIA
[2019-02-01 15:45] VITALS: BP 132/78
[2019-02-01 20:29] VITALS: BP 107/62
[2019-02-01] MEDS: RISPERIDONE 1 MG TABLET PO SCH (21:01)
[2019-02-01] MEDS: MIRTAZAPINE 15 MG TABLET PO SCH (21:01)
--- NOTE | 2019-02-01 21:05 | NUR ---
MEDS SHIFT ASSESSMENT DONE, PLEASE REFER TO CHART. DUE MEDS CRUSHED AND TRIED TO GIVE WITH APPLE SAUCE BUT PT GOT AGITATED NOT WANTING LADIES' HAT TRIMMER IN ROOM. SITTER IN ROOM ASKED TO TRY TO GIVE MEDS TO PT AND PT OPENED HIS MOUTH AND MEDS IN APPLE SAUCE GIVEN BUT PT SPIT IT OUT. WILL KEEP WITH SITTER IN ROOM FOR CLOSE MONITORING. WILL TRY TO MEDICATE PT AGAIN WHEN HE SETTLES DOWN. Addendum: 02/01/19 at 2251 by POORNIMA TOWNSEND RN RN Amended: Links added.
--- NOTE | 2019-02-01 23:00 | NUR ---
MD DR JOHNSON IN TO SEE PT. NO NEW ORDERS GIVEN.
[2019-02-01 23:29] VITALS: BP 98/60
--- NOTE | 2019-02-02 02:00 | NUR ---
ROUNDS SITTER VERBALIZES THAT THERE IS NOT MUCH URINE ON THE COLLECTION BAG. CHECKED PATENCY OF CATHETER, PATENT. PT FAIRLY ASLEEP WITH RESPIRATIONS EVEN AND UNLABORED. NO NOTED DISTRESS. KEPT UNDISTURBED FOR NOW. WILL CONTINUE TO MONITOR.
[2019-02-02 03:15] VITALS: BP 124/65
--- NOTE | 2019-02-02 03:45 | NUR ---
F/C SITTER CALLS LOCOMOTIVE FIRER AND NOTED HEMATURIA ON THE F/C WITH BLOOD CLOTS IN THE TUBING. FLUSHED F/C WITH NS BUT NO CLOTS EVACUATED. WILL MONITOR URINE OUTPUT.
[2019-02-02] MEDS ORDERED: DOXYCYCLINE 100MG+NS 250ML 250 ML IV ONE (05:29)
[2019-02-02] MEDS: DOXYCYCLINE 100MG+NS 250ML 250 ML IV SCH ×2 (05:35→18:00)
--- NOTE | 2019-02-02 05:35 | NUR ---
MEDS PT STILL VERY CONFUSED, MUMBLING TO HIMSELF. RE-POSITIONED COMFORTABLY IN BED. PT'S URINE IS CLEAR YELLOW AT THIS TIME. NO CLOTS NOR HEMATURIA AT THIS TIME. DUE IV DOXYCYCLINE ADMINISTERED. SITTER KEEPING CLOSE WATCH ON PT. FOR MORE CARE.
[2019-02-02 08:00] VITALS: BP 112/72
[2019-02-02] MEDS: [UNRECOGNIZED DRUG - OTHER] PO SCH (09:00)
[2019-02-02] MEDS: Melatonin 3 MG PO SCH (09:00)
[2019-02-02] MEDS: [UNRECOGNIZED DRUG - OTHER] PO SCH ×3 (09:00→20:33)
[2019-02-02] MEDS: POLYETHYLENE GLYCOL 3350 17 GM POWD.PACK PO SCH (10:41)
[2019-02-02] MEDS: ENALAPRIL MALEATE 5 MG TAB PO SCH (10:42)
[2019-02-02] MEDS: CYANOCOBALAMIN (VITAMIN B-12) 100 MCG TABLET PO SCH (10:42)
[2019-02-02] MEDS: FAMOTIDINE 20MG TAB 20 MG TAB PO SCH (10:43)
[2019-02-02] MEDS: CETIRIZINE HCL 5 MG TABLET PO SCH (10:43)
[2019-02-02] MEDS: FUROSEMIDE 20 MG TABLET PO SCH (10:43)
[2019-02-02] MEDS: FOLIC ACID/VITAMIN B COMP W-C 1 MG CAP/TAB PO SCH (10:43)
[2019-02-02] MEDS: RISPERIDONE 1 MG TABLET PO SCH ×2 (10:44→20:33)
[2019-02-02] MEDS: TAMSULOSIN HCL 0.4 MG CAP.ER.24H PO SCH (10:44)
[2019-02-02] MEDS: MULTIVITAMIN TABLET PO SCH (10:44)
[2019-02-02] MEDS: ASCORBIC ACID 500 MG TAB PO SCH ×2 (10:45→20:33)
[2019-02-02 11:00] VITALS: BP 125/73
[2019-02-02 16:00] VITALS: BP 78/58
[2019-02-02 20:00] VITALS: BP 102/56
[2019-02-02] MEDS: MIRTAZAPINE 15 MG TABLET PO SCH (20:33)
--- NOTE | 2019-02-02 20:53 | NUR ---
MEDS SHIFT ASSESSMENT DONE, PLEASE REFER TO CHART. DUE MEDS CRUSHED AND GIVEN WITH APPLE SAUCE. PT VERY COOPERATIVE AT THIS TIME AND TOOK MEDS. TOLERATED WELL. KEPT COMFORTABLE IN BED. SITTER BY PT'S DOOR IN ATTENDANCE TO NEEDS AT THIS TIME. Addendum: 02/02/19 at 2340 by POORNIMA TOWNSEND RN RN Amended: Links added.
[2019-02-03] VITALS: BP 106/62
--- NOTE | 2019-02-03 02:00 | NUR ---
ROUNDS PT FAIRLY ASLEEP WITH RESPIRATIONS EVEN AND UNLABORED. NO NOTED DISTRESS. KEPT UNDISTURBED FOR NOW. CHECKED ON PT'S F/C OUTPUT. NOTED LITTLE OUTPUT IN COLLECTION BAG. IRRIGATED F/C, NO BLOOD CLOTS NOTED AND F/C IS PATENT. WILL CONTINUE TO MONITOR.
[2019-02-03 04:00] VITALS: BP 93/46
[2019-02-03] MEDS ORDERED: DOXYCYCLINE 100MG+NS 250ML 250 ML IV ONE (04:25)
[2019-02-03] MEDS: DOXYCYCLINE 100MG+NS 250ML 250 ML IV SCH (04:57)
--- NOTE | 2019-02-03 05:00 | NUR ---
PIV PT IS FAIRLY SEDATED AT THIS TIME. COUGHS BUT UNABLE TO CLEAR HIS THROAT. DISCONTINUED PIV IT IS ALREADY INFILTRATED, CATHETER INTACT. RE-INSERTED G22 TO LEFT HAND, WRAPPED WITH KERLIX AND SECURED WITH TAPE. RE-POSITIONED COMFORTABLY IN BED. FOR MORE CARE. Addendum: 02/03/19 at 0532 by POORNIMA TOWNSEND RN RN Amended: Links added.
[2019-02-03 05:19] LABS: BASOPHILS % (AUTO) 0.8 % (0.0-5.0); EOSINOPHILS % (AUTO) 15.2 % (0.0-8.0); HEMATOCRIT 37.1 % (42-54); LYMPHOCYTES % (AUTO) 16.9 % (21.0-51.0); MEAN CORPUSCULAR HEMOGLOBIN 31.7 pg (27.0-33.0); MEAN CORPUSCULAR HGB CONC 33.2 g/dL (32.0-36.0); MEAN CORPUSCULAR VOLUME 95.4 fL (79-99); MONOCYTES % (AUTO) 7.7 % (3.0-13.0); NEUTROPHILS % (AUTO) 59.4 % (40.0-77.0); PLATELET COUNT (AUTO) 175 K/uL (130-400); RED BLOOD CELL COUNT(AUTO) 3.89 MIL/uL (4.50-6.20); RED CELL DISTRIBUTION WIDTH 15.1 % (11.0-15.5); WHITE BLOOD COUNT (AUTO) 4.5 K/uL (4.8-10.8)
[2019-02-03 05:49] LABS: CREATININE 1.6 mg/dL (0.5-1.5); POTASSIUM 4.3 mmol/L (3.5-5.1)
[2019-02-03 07:00] VITALS: BP 112/77
[2019-02-03] MEDS: Melatonin 3 MG PO SCH (09:00)
[2019-02-03] MEDS: [UNRECOGNIZED DRUG - OTHER] PO SCH ×3 (09:00→20:20)
[2019-02-03] MEDS: [UNRECOGNIZED DRUG - OTHER] PO SCH (09:00)
[2019-02-03] MEDS: POLYETHYLENE GLYCOL 3350 17 GM POWD.PACK PO SCH (09:23)
[2019-02-03] MEDS: MULTIVITAMIN TABLET PO SCH (09:23)
[2019-02-03] MEDS: FAMOTIDINE 20MG TAB 20 MG TAB PO SCH (09:24)
[2019-02-03] MEDS: CYANOCOBALAMIN (VITAMIN B-12) 100 MCG TABLET PO SCH (09:24)
[2019-02-03] MEDS: RISPERIDONE 1 MG TABLET PO SCH ×2 (09:24→20:20)
[2019-02-03] MEDS: FOLIC ACID/VITAMIN B COMP W-C 1 MG CAP/TAB PO SCH (09:24)
[2019-02-03] MEDS: FUROSEMIDE 20 MG TABLET PO SCH (09:24)
[2019-02-03] MEDS: ASCORBIC ACID 500 MG TAB PO SCH ×2 (09:24→20:19)
[2019-02-03] MEDS: TAMSULOSIN HCL 0.4 MG CAP.ER.24H PO SCH (09:25)
[2019-02-03] MEDS: CETIRIZINE HCL 5 MG TABLET PO SCH (09:25)
[2019-02-03] MEDS: ENALAPRIL MALEATE 5 MG TAB PO SCH (09:25)
[2019-02-03] MEDS ORDERED: DEXTROSE 5 % AND 0.9 % NACL 1,000 ML IV SCH (10:15)
[2019-02-03] MEDS ORDERED: ENOXAPARIN SODIUM 30 MG/0.3 ML SQ SCH (10:30)
[2019-02-03 11:00] VITALS: BP 71/41
--- NOTE | 2019-02-03 11:31 | NUR ---
DCP:COMFORT MEASURES- [facility] WITH PLACEMENT Mynor and CM met with pt's son Clark. Per son, family had already been working with Vanesa at [facility] on transitioning pt from SNF to senior care placement with hospice prior to admit. Family is in agreement with continuing with their plan for dc. Discussed returning to [facility] and completing the senior care application, or going to [facility]. Sw to talked to Jessica at [facility] regarding plan and see if they will accept pt back, if not, will talk to [facility] about new plan with hospice. Discussed making pt comfort measures and see if we can get mittens and 1 tot 1 removed so pt is more comfortable and less restless. Son signed consent for referrals Mynor spoke to Vaensa at [facility] [phone] and informed of above. Faxed pt info to [phone]. Mynor spoke to Jessica at [facility], she will get with business office on possible return and recontact us
--- NOTE | 2019-02-03 12:24 | NUR ---
COMFORT MEASURES DC ANDRADE AT APPROX 1200 HOURS, PATIENT TOLERATED WITHOUT INCIDENT. NOTED WAS A SMALL AMOUNT OF SEDIMENT AND RED TINGED URINE IN ANDRADE BAG. APPROX 450ML WAS EMPTIED. DC IV, BLEEDING CONTROLLED, CATHLON INTACT, PATIENT TOLERATED WITHOUT INCIDENT. MITTENS WERE REMOVED FOR COMFORT. PATIENT WILL BE OBSERVED FOR AGITATION.
[2019-02-03 16:00] VITALS: BP 116/59
--- NOTE | 2019-02-03 16:30 | NUR ---
[facility] ACCEPTED Sw recd call from Ana at [facility]. They will accept pt, but have no beds till Saturday.
[2019-02-03 20:00] VITALS: BP 99/59
[2019-02-03] MEDS: MIRTAZAPINE 15 MG TABLET PO SCH (20:19)
--- NOTE | 2019-02-03 20:20 | NUR ---
MEDS SHIFT ASSESSMENT DONE, PLEASE REFER TO CHART. DUE MEDS CRUSHED AND GIVEN WITH APPLE SAUCE. PT COOPERATIVE AT THIS TIME AND WAS ABLE TO TAKE HIS PILLS WELL. POSITIONED COMFORTABLY WITH HOB ELEVATED. WILL MONITOR CLOSELY. Addendum: 02/04/19 at 0159 by POORNIMA TOWNSEND RN RN Amended: Links added.
[2019-02-04] VITALS (7 sets, daily range): BP systolic 93–133; BP diastolic 44–75
--- NOTE | 2019-02-04 02:00 | NUR ---
ROUNDS PT RESTING WELL, FAIRLY ASLEEP WITH RESPIRATIONS EVEN AND UNLABORED. NO NOTED DISTRESS. KEPT UNDISTURBED FOR NOW. WILL CONTINUE TO MONITOR.
[2019-02-04 06:36] LABS: MEAN CORPUSCULAR HEMOGLOBIN 32.3 pg (27.0-33.0); MEAN CORPUSCULAR HGB CONC 33.5 g/dL (32.0-36.0); MEAN CORPUSCULAR VOLUME 96.3 fL (79-99); PLATELET COUNT (AUTO) 137 K/uL (130-400); RED BLOOD CELL COUNT(AUTO) 3.95 MIL/uL (4.50-6.20); RED CELL DISTRIBUTION WIDTH 15.4 % (11.0-15.5); WHITE BLOOD COUNT (AUTO) 8.1 K/uL (4.8-10.8)
[2019-02-04 06:46] LABS: CREATININE 1.5 mg/dL (0.5-1.5); POTASSIUM 4.2 mmol/L (3.5-5.1)
--- NOTE | 2019-02-04 09:51 | NUR ---
PATIENT IS STILL ASLEEP SINCE EARLY THIS MORNING REPORTED BY NIGHT NURSE DURING ROUND. HIS SON JUVENCIO CAME IN AND INQUIRED UPDATE ON HIS STATUS. HE SAID THAT THE PATIENT IS ON COMFORT MEASURES TO ONLY GIVE HIM WHAT HE CAN HANDLE. PATIENT IS UNABLE TO EAT BREAKFAST NOR TAKE AM MEDS. WILL CONTINUE TO MONITOR FOR ALERTNESS.
--- NOTE | 2019-02-04 13:52 | NUR ---
RD Update Pt with comfort measures in place. Pt with Heart Healthy, Mechanical Soft diet in place. Pt receiving Ensure TID. Please notify RD as additional nutrition concerns arise.
[2019-02-04] MEDS: [UNRECOGNIZED DRUG - OTHER] PO SCH ×3 (14:00→20:23)
[2019-02-04] MEDS: FAMOTIDINE 20MG TAB 20 MG TAB PO SCH (14:47)
[2019-02-04] MEDS: CETIRIZINE HCL 5 MG TABLET PO SCH (14:47)
[2019-02-04] MEDS: TAMSULOSIN HCL 0.4 MG CAP.ER.24H PO SCH (14:47)
[2019-02-04] MEDS: RISPERIDONE 1 MG TABLET PO SCH ×2 (14:47→20:22)
[2019-02-04] MEDS: FOLIC ACID/VITAMIN B COMP W-C 1 MG CAP/TAB PO SCH (14:47)
[2019-02-04] MEDS: ASCORBIC ACID 500 MG TAB PO SCH ×2 (14:48→20:23)
[2019-02-04] MEDS: MULTIVITAMIN TABLET PO SCH (14:48)
[2019-02-04] MEDS: FUROSEMIDE 20 MG TABLET PO SCH (14:48)
[2019-02-04] MEDS: POLYETHYLENE GLYCOL 3350 17 GM POWD.PACK PO SCH (14:48)
[2019-02-04] MEDS: Melatonin 3 MG PO SCH (14:54)
[2019-02-04] MEDS: [UNRECOGNIZED DRUG - OTHER] PO SCH (14:55)
[2019-02-04] MEDS: CYANOCOBALAMIN (VITAMIN B-12) 100 MCG TABLET PO SCH (14:56)
[2019-02-04] MEDS: ENOXAPARIN SODIUM 30 MG/0.3 ML SQ SCH (15:00)
[2019-02-04] MEDS: ENALAPRIL MALEATE 5 MG TAB PO SCH (15:06)
--- NOTE | 2019-02-04 15:07 | NUR ---
AROUSED FOR THE FIRST TIME AND I WAS ABLE TO GIVE HIM MOST OF HIS MEDICATIONS CRUSHED WITH APPLE SAUCE, AND HE TOOK A FEW SIPS OF HIS ENSURE SUPPLEMENT, THEN HE CLOSED HIS EYES AGAIN AND REFUSED ANYTHING ELSE. WILL CONTINUE TO MONITOR.
--- NOTE | 2019-02-04 15:48 | NUR ---
WOKE UP AGAIN YELLING "NO ONE WANTS ME, I WANT TWO CUPS OF COFFE, TWO CUPS OF ICE AND TWO CUPS OF COLD WATER." REASSURANCE PROVIDED FOR CALMING EFFECT. HE WAS ABLE TO DRINK ALL OF HIS ENSURE SUPPLEMENT.
[2019-02-04] MEDS: MIRTAZAPINE 15 MG TABLET PO SCH (20:23)
--- NOTE | 2019-02-04 20:25 | NUR ---
MEDS SHIFT ASSESSMENT DONE, PLEASE REFER TO CPOE. PT WAS ABLE TO TAKE PO MEDS, CRUSHED WITH APPLE SAUCE BUT REFUSES TO DRINK ANY WATER. KEPT COMFORTABLE IN BED. WILL MONITOR CLOSELY. Addendum: 02/05/19 at 0134 by POORNIMA TOWNSEND RN RN Amended: Links added.
--- NOTE | 2019-02-04 22:00 | NUR ---
ROUNDS PT RESTING WELL, NO DISTRESS NOTED. KEPT COMFORTABLE. WILL MONITOR CLOSELY.
--- NOTE | 2019-02-05 02:00 | NUR ---
ROUNDS PT IS PICKING ON HIS ANTONIA HOSE AND LINEN. PCP IN AND FIXED PT'S LINEN AND RE-POSITIONED PT IN BED. WILL KEEP ON CLOSE MONITORING.
[2019-02-05 04:02] VITALS: BP 118/58
--- NOTE | 2019-02-05 06:49 | NUR ---
REPORT ENDORSING PT TO AM SHIFT. PENDING PLACEMENT TO HOSPICE CARE. FOR MORE CARE.
[2019-02-05 08:00] VITALS: BP 124/69
[2019-02-05] MEDS: ENALAPRIL MALEATE 5 MG TAB PO SCH (08:31)
[2019-02-05] MEDS: FAMOTIDINE 20MG TAB 20 MG TAB PO SCH (08:32)
[2019-02-05] MEDS: MULTIVITAMIN TABLET PO SCH (08:32)
[2019-02-05] MEDS: CYANOCOBALAMIN (VITAMIN B-12) 100 MCG TABLET PO SCH (08:32)
[2019-02-05] MEDS: TAMSULOSIN HCL 0.4 MG CAP.ER.24H PO SCH (08:32)
[2019-02-05] MEDS: POLYETHYLENE GLYCOL 3350 17 GM POWD.PACK PO SCH (08:32)
[2019-02-05] MEDS: ASCORBIC ACID 500 MG TAB PO SCH ×2 (08:32→21:00)
[2019-02-05] MEDS: FOLIC ACID/VITAMIN B COMP W-C 1 MG CAP/TAB PO SCH (08:32)
[2019-02-05] MEDS: CETIRIZINE HCL 5 MG TABLET PO SCH (08:32)
[2019-02-05] MEDS: RISPERIDONE 1 MG TABLET PO SCH ×2 (08:32→21:00)
[2019-02-05] MEDS: FUROSEMIDE 20 MG TABLET PO SCH (08:33)
[2019-02-05] MEDS: Melatonin 3 MG PO SCH (08:34)
[2019-02-05] MEDS: [UNRECOGNIZED DRUG - OTHER] PO SCH (08:34)
[2019-02-05] MEDS: [UNRECOGNIZED DRUG - OTHER] PO SCH ×2 (08:34→21:00)
[2019-02-05] MEDS: ENOXAPARIN SODIUM 30 MG/0.3 ML SQ SCH (08:36)
--- NOTE | 2019-02-05 08:46 | NUR ---
DCP ENRIQUETA spoke to Vanesa at [facility]. Informed of [facility] acceptance and she will contact son Clark and get consents signed and make arrangements with Ana for DME delivery. Vanesa to update and dc
--- NOTE | 2019-02-05 08:56 | NUR ---
JONEL Lowe spoke to Ana. She is hoping that she will have bed available tomorrow. Ana to check at facility for update on their discharge and recontact Sw
[2019-02-05 12:00] VITALS: BP 121/81
--- NOTE | 2019-02-05 14:20 | NUR ---
PATIENT HAS NOT URINATED. BLADDER SCAN PERFORMED AND 675ML OF URINE WAS SCANNED. FILM REPLACEMENT ORDERER WAS NOTIFIED AND ORDER WAS RECEIVE FOR F/C INSERTION. WILL NOTIFY HIS SON.
--- NOTE | 2019-02-05 14:20 | NUR ---
JONEL Lowe recd call from [facility] at [facility], they will not have bed available as thought for tomorrow. Bed will be available on Saturday. ENRIQUETA notified Sandra MUÑOZ of this and she will staff with [employer]. ENRIQUETA to assist as needed
--- NOTE | 2019-02-05 15:00 | NUR ---
16 FR ANDRADE CATH INSERTED ASSISTED BY TONSORIAL ARTIST AND THE ASSIGNED SPORTS CLERK. 1750ML OF DARK BROWN URINE DISCARDED. TOLERATED THE PROCEDURE WELL. TUBING WAS SECURED TO THE RIGHT THIGH. STERILE TECHNIQUE UTILIZED.
--- NOTE | 2019-02-05 20:15 | NUR ---
NO IV LINE ACCESS ENDORSED BY CYNTHIA GERONIMO THAT PATIENT HAS NO IV ACCESS. PATIENT IS DNR WITH COMFORT MEASURES ORDERED. Addendum: 02/06/19 at 0903 by JIMENEZ VIEIRA RN RN Amended: Links added.
[2019-02-05] MEDS: MIRTAZAPINE 15 MG TABLET PO SCH (21:00)
[2019-02-06] VITALS: BP 100/61
[2019-02-06 07:00] VITALS: BP 158/87
[2019-02-06] MEDS: Melatonin 3 MG PO SCH (09:00)
[2019-02-06] MEDS: [UNRECOGNIZED DRUG - OTHER] PO SCH ×3 (09:00→21:00)
[2019-02-06] MEDS: [UNRECOGNIZED DRUG - OTHER] PO SCH (09:00)
[2019-02-06] MEDS: CETIRIZINE HCL 5 MG TABLET PO SCH (09:32)
[2019-02-06] MEDS: RISPERIDONE 1 MG TABLET PO SCH ×2 (09:32→22:50)
[2019-02-06] MEDS: ENOXAPARIN SODIUM 30 MG/0.3 ML SQ SCH (09:32)
[2019-02-06] MEDS: FOLIC ACID/VITAMIN B COMP W-C 1 MG CAP/TAB PO SCH (09:32)
[2019-02-06] MEDS: ASCORBIC ACID 500 MG TAB PO SCH ×2 (09:33→22:50)
[2019-02-06] MEDS: MULTIVITAMIN TABLET PO SCH (09:33)
[2019-02-06] MEDS: TAMSULOSIN HCL 0.4 MG CAP.ER.24H PO SCH (09:33)
[2019-02-06] MEDS: FUROSEMIDE 20 MG TABLET PO SCH (09:33)
[2019-02-06] MEDS: FAMOTIDINE 20MG TAB 20 MG TAB PO SCH (09:33)
[2019-02-06] MEDS: POLYETHYLENE GLYCOL 3350 17 GM POWD.PACK PO SCH (09:34)
[2019-02-06] MEDS: ENALAPRIL MALEATE 5 MG TAB PO SCH (09:34)
[2019-02-06] MEDS: CYANOCOBALAMIN (VITAMIN B-12) 100 MCG TABLET PO SCH (09:34)
[2019-02-06] MEDS: LORAZEPAM 0.5 MG TABLET PO PRN (12:04)
--- NOTE | 2019-02-06 13:59 | NUR ---
DC PEG SPOKE TO [facility] SAID THAT THE PATIENT DOES NOT HAVE MEDICAID AND THEY WILL NOT TAKE HIM AT THIS TIME HOSPICE. NO SKILL NEED FOR PLACEMENT. SINCE JONEL ALREADY SAID THEY ACCEPTED PATIENT AT THIS TIME WE WILL HAVE TO WAIT FOR WHEN BED IS AVAILABLE. POSSIBLE FOR TODAY IF NOT SATURDAY ACCORDING TO BRIGIDA. Addendum: 02/06/19 at 1401 by DANIELA VILLA RN CM Amended: Links added.
[2019-02-06] MEDS: MIRTAZAPINE 15 MG TABLET PO SCH (22:50)
[2019-02-07] VITALS: BP 128/70
[2019-02-07] MEDS: [UNRECOGNIZED DRUG - OTHER] PO SCH (09:00)
[2019-02-07] MEDS: Melatonin 3 MG PO SCH (09:00)
[2019-02-07] MEDS: ENALAPRIL MALEATE 5 MG TAB PO SCH (09:00)
[2019-02-07] MEDS: [UNRECOGNIZED DRUG - OTHER] PO SCH ×3 (09:00→21:00)
[2019-02-07] MEDS: FAMOTIDINE 20MG TAB 20 MG TAB PO SCH (10:19)
[2019-02-07] MEDS: FOLIC ACID/VITAMIN B COMP W-C 1 MG CAP/TAB PO SCH (10:19)
[2019-02-07] MEDS: CETIRIZINE HCL 5 MG TABLET PO SCH (10:19)
[2019-02-07] MEDS: TAMSULOSIN HCL 0.4 MG CAP.ER.24H PO SCH (10:20)
[2019-02-07] MEDS: ASCORBIC ACID 500 MG TAB PO SCH ×2 (10:20→21:31)
[2019-02-07] MEDS: MULTIVITAMIN TABLET PO SCH (10:20)
[2019-02-07] MEDS: FUROSEMIDE 20 MG TABLET PO SCH (10:20)
[2019-02-07] MEDS: POLYETHYLENE GLYCOL 3350 17 GM POWD.PACK PO SCH (10:21)
[2019-02-07] MEDS: ENOXAPARIN SODIUM 30 MG/0.3 ML SQ SCH (10:21)
[2019-02-07] MEDS: RISPERIDONE 1 MG TABLET PO SCH ×2 (10:21→21:31)
[2019-02-07 11:00] VITALS: BP 108/80
[2019-02-07] MEDS: CYANOCOBALAMIN (VITAMIN B-12) 100 MCG TABLET PO SCH (13:33)
[2019-02-07] MEDS: MIRTAZAPINE 15 MG TABLET PO SCH (21:31)
[2019-02-08] VITALS: BP 150/78
[2019-02-08 06:27] LABS: BASOPHILS % (AUTO) 1.2 % (0.0-5.0); EOSINOPHILS % (AUTO) 8.2 % (0.0-8.0); HEMATOCRIT 39.1 % (42-54); MEAN CORPUSCULAR HGB CONC 33.2 g/dL (32.0-36.0); MEAN CORPUSCULAR VOLUME 96.2 fL (79-99); MONOCYTES % (AUTO) 9.4 % (3.0-13.0); NEUTROPHILS % (AUTO) 60.2 % (40.0-77.0); NUCLEATED RED BLOOD CELLS 0.1 % (0.0-0.19); PLATELET COUNT (AUTO) 200 K/uL (130-400); RED BLOOD CELL COUNT(AUTO) 4.06 MIL/uL (4.50-6.20); RED CELL DISTRIBUTION WIDTH 14.9 % (11.0-15.5); WHITE BLOOD COUNT (AUTO) 3.9 K/uL (4.8-10.8)
[2019-02-08 06:32] LABS: CREATININE 1.9 mg/dL (0.5-1.5); POTASSIUM 3.9 mmol/L (3.5-5.1)
[2019-02-08] MEDS: Melatonin 3 MG PO SCH (09:00)
[2019-02-08] MEDS: [UNRECOGNIZED DRUG - OTHER] PO SCH ×3 (09:00→21:00)
[2019-02-08] MEDS: [UNRECOGNIZED DRUG - OTHER] PO SCH (09:00)
[2019-02-08] MEDS: CYANOCOBALAMIN (VITAMIN B-12) 100 MCG TABLET PO SCH (09:53)
[2019-02-08] MEDS: CETIRIZINE HCL 5 MG TABLET PO SCH (09:53)
[2019-02-08] MEDS: FAMOTIDINE 20MG TAB 20 MG TAB PO SCH (09:53)
[2019-02-08] MEDS: TAMSULOSIN HCL 0.4 MG CAP.ER.24H PO SCH (09:53)
[2019-02-08] MEDS: ASCORBIC ACID 500 MG TAB PO SCH ×2 (09:53→22:01)
[2019-02-08] MEDS: RISPERIDONE 1 MG TABLET PO SCH ×2 (09:53→22:01)
[2019-02-08] MEDS: FUROSEMIDE 20 MG TABLET PO SCH (09:53)
[2019-02-08] MEDS: POLYETHYLENE GLYCOL 3350 17 GM POWD.PACK PO SCH (09:54)
[2019-02-08] MEDS: MULTIVITAMIN TABLET PO SCH (09:54)
[2019-02-08] MEDS: ENOXAPARIN SODIUM 30 MG/0.3 ML SQ SCH (09:55)
[2019-02-08] MEDS: FOLIC ACID/VITAMIN B COMP W-C 1 MG CAP/TAB PO SCH (09:55)
[2019-02-08] MEDS ORDERED: PHARMACY COMMUNICATION MISC SCH (10:00)
--- NOTE | 2019-02-08 10:00 | NUR ---
[facility]: Spoke kianna Perez this am regarding bed availability. She mentions that at this time bed is still pending for patient, however she anticipates that bed will be avail tomorrow. CM to continue to follow.
[2019-02-08 11:00] VITALS: BP 123/58
[2019-02-08] MEDS: ENALAPRIL MALEATE 5 MG TAB PO SCH (14:20)
[2019-02-08] MEDS: MIRTAZAPINE 15 MG TABLET PO SCH (22:01)
[2019-02-09] VITALS: BP 112/78
[2019-02-09] MEDS: LORAZEPAM 0.5 MG TABLET PO PRN (02:56)
--- NOTE | 2019-02-09 03:17 | NUR ---
PAGED MD CLARIFICATION ON AM LABS NEEDED D/T PATIENT DNR ON COMFORT MEASURES.
--- NOTE | 2019-02-09 03:20 | NUR ---
KELI CANNON RETURNED PAGE ORDERED TO HAVE AM LABS CANCELLED. WILL PLACE ORDER TO CANCELL.
[2019-02-09] MEDS: FAMOTIDINE 20MG TAB 20 MG TAB PO SCH (10:13)
[2019-02-09] MEDS: FUROSEMIDE 20 MG TABLET PO SCH (10:13)
[2019-02-09] MEDS: FOLIC ACID/VITAMIN B COMP W-C 1 MG CAP/TAB PO SCH (10:13)
[2019-02-09] MEDS: ENALAPRIL MALEATE 5 MG TAB PO SCH (10:13)
[2019-02-09] MEDS: TAMSULOSIN HCL 0.4 MG CAP.ER.24H PO SCH (10:13)
[2019-02-09] MEDS: ENOXAPARIN SODIUM 30 MG/0.3 ML SQ SCH (10:14)
[2019-02-09] MEDS: CETIRIZINE HCL 5 MG TABLET PO SCH (10:14)
[2019-02-09] MEDS: CYANOCOBALAMIN (VITAMIN B-12) 100 MCG TABLET PO SCH (10:14)
[2019-02-09] MEDS: POLYETHYLENE GLYCOL 3350 17 GM POWD.PACK PO SCH (10:14)
[2019-02-09] MEDS: MULTIVITAMIN TABLET PO SCH (10:14)
[2019-02-09] MEDS: ASCORBIC ACID 500 MG TAB PO SCH (10:14)
[2019-02-09] MEDS: RISPERIDONE 1 MG TABLET PO SCH (10:14)
[2019-02-09 11:44] VITALS: BP 106/53
--- NOTE | 2019-02-09 14:19 | NUR ---
RUBÉN ALLRED CALLED SAID BED AVAILABLE. PATIENT GOING TO [facility] WITH [facility]. EMS SET UP PATIENT CONFUSED AND BED BOUND. Addendum: 02/09/19 at 1422 by DANIELA VILLA RN CM Amended: Links added.
--- NOTE | 2019-02-09 17:15 | NUR ---
Patient discharged in stable condition. Patient transferring to [facility] under hospice. Son Clark at bedside and signed dc paperwork. EMS here for picking crew supervisor. Report called to Ruth from [facility] and to ZACK Cordoba/[facility]. No other questions or concerns from son.
== END 2019-02-09 17:30 | disposition hospice, inpatient (51) | DRG 698 ==
LOC: EDH 15:43 → EDHIP 18:37 → 3DH 22:30
PROVIDERS: ADMIT Hospitalist; ATTEND Hospitalist
DX: T83.511A Infection and inflammatory reaction due to indwelling urethral catheter, initial encounter (principal); G93.41 Metabolic encephalopathy; N17.9 Acute kidney failure, unspecified; F03.91 Unspecified dementia, unspecified severity, with behavioral disturbance; E86.0 Dehydration; R31.9 Hematuria, unspecified; I10 Essential (primary) hypertension; J44.9 Chronic obstructive pulmonary disease, unspecified; K59.00 Constipation, unspecified; R33.9 Retention of urine, unspecified; W19.XXXA Unspecified fall, initial encounter; Y84.6 Urinary catheterization as the cause of abnormal reaction of the patient, or of later complication, without mention of misadventure at the time of the procedure; Y93.89 Activity, other specified; Y92.128 Other place in nursing home as the place of occurrence of the external cause; Y99.8 Other external cause status; Y92.89 Other specified places as the place of occurrence of the external cause; Z83.3 Family history of diabetes mellitus
CPT/HCPCS: 36415; 70450; 71045; 80048; 80053; 81001; 82140; 82550; 83605; 84484; 85025; 85027; 85610; 85730; 87040; 87088; 93005; 94640; 94664; 97039; A4344; G0378; J1650; J2060; J3490; J7030